=== PATIENT | female | born 1995 | race Caucasian/White ===

== ENCOUNTER 2016-09-25 20:30 | Inpatient (IN) ==
[2016-09-25 21:11] LABS: Basophils % 0.3 %; Eosinophils # 0.2 K/mcL (0.0-0.6); Eosinophils % 1.4 %; Hemoglobin 13.5 g/dL (11.5-15.4); Immature Granulocytes % 0.5 % (0-4); Lymphocytes # 2.6 K/mcL (0.6-4.6); Lymphocytes % 19.7 %; Mean Corpuscular HGB Conc 33.8 g/dL (31.6-35.5); Mean Corpuscular Hemoglobin 31.3 pg (28.0-33.3); Mean Corpuscular Volume 92.6 fL (83.0-100.0); Mean Platelet Volume 9.3 fL (9.4-12.4); Monocytes # 0.9 K/mcL (0.0-1.3); Monocytes % 6.4 %; Neutrophils # 9.5 K/mcL (1.6-8.9); Platelet Count 274 K/mcL (140-400); Red Blood Count 4.32 M/mcL (3.82-4.97); Segmented Neutrophils % 71.7 %
[2016-09-25 21:26] LABS: BUN/Creatinine Ratio 14 (6-26); Blood Urea Nitrogen 10 mg/dL (7-20); Calcium 9.4 mg/dL (8.6-10.8); Carbon Dioxide 25 mEq/L (19-29); Chloride 104 mEq/L (98-109); Glucose 94 mg/dL (70-99); Osmolality,Calculated 287 (280-300); Potassium 3.5 mEq/L (3.5-4.5); Sodium 139 mEq/L (136-145); eGFR For African Americans > 60 (> 60); eGFR For Non-African Americans > 60 (> 60)
[2016-09-25 21:27] LABS: Acetaminophen < 1.0 mcg/mL (10-30); Ethanol < 10 mg/dL (0-10); Salicylate < 5.0 mg/dL (15-30)
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
[2016-09-25 21:55] LABS: Bilirubin,Urine Negative (Negative); Blood,Urine Negative (Negative); Clarity,Urine Turbid (Clear); Color,Urine Yellow (Yellow); Glucose,Urine (UA) Normal (Normal); Ketones,Urine Negative (Negative); Leukocyte Esterase,Urine Trace (Negative); Nitrite,Urine Negative (Negative); Protein,Urine Negative (Neg-Trace); Specific Gravity,Urine 1.024 (1.010-1.025); Urobilinogen,Urine Normal (Normal)
[2016-09-25 21:56] LABS: Bacteria,Urine Moderate per hpf (None-Few); Hyaline Casts,Urine None Seen per lpf (None-Few); Squamous Epithelial Cell,Urine Many per lpf (None-Few)
[2016-09-25] MEDS ORDERED: Nicotine 14 MG PATCH.TD24 TD ONE (22:00)
[2016-09-25 22:01] LABS: Amphetamine Screen,Urine Negative ng/mL (Cutoff=1000); Barbiturate Screen,Urine Negative ng/mL (Cutoff=200); Benzodiazepines Screen,Urine Negative ng/mL (Cutoff=200); Cannabinoid Screen,Urine Negative ng/mL (Cutoff = 50); Cocaine Screen,Urine Negative ng/mL (Cutoff= 300); Opiate Screen,Urine Negative ng/mL (Cutoff=300); Phencyclidine Screen,Urine Negative ng/mL (Cutoff=25)
[2016-09-25 22:14] LABS: Amorphous Sediment,Urine Many (Few); Mucus,Urine Few (Few)
[2016-09-26] MEDS ORDERED: Acetaminophen 325 MG TABLET PO ONE (01:04)
[2016-09-26] MEDS ORDERED: *HR* LORazepam 2 MG/ML VIAL IM PRN (01:45)
[2016-09-26] MEDS ORDERED: hydrOXYzine pamoate 25 MG CAPSULE PO PRN (01:45)
[2016-09-26] MEDS ORDERED: Mag Hydrox/Al Hydrox/Simeth 30 ML UDC PO PRN (01:45)
[2016-09-26] MEDS ORDERED: *HR* LORazepam 1 MG TABLET PO PRN (01:45)
[2016-09-26] MEDS ORDERED: MOM Conc 10 ML UD.LIQ PO PRN (01:45)
[2016-09-26] MEDS ORDERED: Haloperidol Lactate 5 MG/ML VIAL IM PRN (01:45)
[2016-09-26] MEDS ORDERED: Acetaminophen 325 MG TABLET PO PRN (01:45)
[2016-09-26] MEDS ORDERED: Nicotine 14 MG PATCH.TD24 TD SCH (09:00)
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
[2016-09-26] MEDS: lamoTRIgine 25 MG TABLET PO SCH ×2 (11:09→21:16)
[2016-09-26] MEDS: Nicotine 2 MG GUM BC PRN (20:38)
[2016-09-27] MEDS: lamoTRIgine 25 MG TABLET PO SCH ×2 (08:53→21:10)
[2016-09-27] MEDS: Nicotine 2 MG GUM BC PRN ×3 (08:55→21:10)
--- NOTE | 2016-09-27 10:51 | Psychiatry Progress Note ---
Date of Encounter: 09/27/16 Time of Encounter: 10:49 Subjective Interval history: Patient seen and evaluated. Patient was a little upset that she would not be discharged today because she wanted to be home with her daughter. Patient was explained that we would have to see how her medication was doing before discharge. Patient was agreeable to this and understood why. Patient reports no side effects to new medication Lamictal being initiated for her mood stabilization. Patient has been met medication compliant. No when necessary's required for agitation or aggression. Patient has been going to groups and interacting with her peers. Results - Vital Signs Vital Signs: Temp Pulse Resp BP Pulse Ox 98.1 F 77 16 104/60 96 09/27/16 09:00 09/27/16 09:00 09/27/16 09:00 09/27/16 09:00 09/25/16 20:33 Assessment and Plan (1) Bipolar 2 disorder, major depressive episode Current visit: Yes Status: Acute Plan: Continue hospitalization, Close observation, Group Therapy, Monitor sleep , Monitor appetite, Family/Supportive other meeting Additional Plan: 09/27: continue meds, stronly encouraged individual counseling 09/26:- start lamictal 25 mg BID for mood sx control and depression - continue home dose of celexa Risks, benefits, side effects, alternatives discussed w/pt: Yes Patient agreeable to treatment: Yes (2) Intellectual disability Current visit: Yes Status: Acute Risks, benefits, side effects, alternatives discussed w/pt: Yes Patient agreeable to treatment: Yes Consult Discharge Plan - Plan Referrals: [facility] [Outside] - 10/20/16 10:00 am (The above appointment is with Ashley Costello for counseling. He will also see Dr. Pacheco on 10/31/2016 at 2:40 PM.)
[2016-09-28 08:35] VITALS: BP 96/71
[2016-09-28] MEDS: lamoTRIgine 25 MG TABLET PO SCH (08:44)
[2016-09-28] MEDS: Nicotine 2 MG GUM BC PRN ×2 (08:46→12:06)
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
[2016-09-28] MEDS ORDERED: FLU VACC QS2016-17 36MOS UP/PF 0.5 ML SYRINGE IM ONE (10:44)
== END 2016-09-28 12:55 | disposition home or self-care (01) | DRG 751 ==
LOC: EMEROO 20:30 → 1ANU 20:30 → SUATTDRO 09-26 01:28 → 1ANU 09-26 01:30
PROVIDERS: ADMIT Psychiatry & Neurology Psychiatry; ATTEND Psychiatry & Neurology Psychiatry

== ENCOUNTER 2017-04-12 12:12 | Inpatient (IN) ==
--- NOTE | 2017-04-12 12:34 | Emergency Department Note ---
START Narrative - START START: Patient presents from home for evaluation of feeling suicidal and homicidal per her mother. She states that she is very angry and depressed. She does not wish to discuss specific stressors at this time. She states that she has been evaluated by one a here in the past for similar feelings. She sees Dr. Pacheco, the psychiatrist at [facility]. She has had a recent medication change but is not sure which medication she was started on. She was taken off Abilify. She denies fever, chills, nausea, vomiting, chest pain, shortness of breath, dizziness, vertigo, syncope. Labs have been ordered to further evaluate the patient in hopes that she can be medically cleared for psychiatric evaluation. She will be admitted to a medical bed as soon as possible.
--- NOTE | 2017-04-12 12:44 | Emergency Department Note ---
Disposition Clinical Impression: Bipolar disorder Qualifiers: Active/Remission status: currently active Current bipolar episode type: mixed Current episode severity: unspecified Qualified Code(s): F31.60 - Bipolar disorder, current episode mixed, unspecified Disposition: Transfer Psychiatric Hosp Condition: Fair Referrals: NONE,PCP [Primary Care Provider] - Forms: ED Satisfaction Letter Time of Disposition: 17:01 Psych HPI - General Chief Complaint: ED Psychiatric Symptoms Stated Complaint: SI/HI Time Seen by Provider: 04/12/17 12:28 Source: patient, family Mode of arrival: ambulatory Limitations: no limitations Nursing Notes Reviewed: Yes Vital Signs Reviewed: Yes - History of Present Illness HPI Narrative: Patient states she has thoughts of hurting herself. She ingested extra amounts of her naproxen and Vistaril over the past several days in an attempt to harm herself. The mother notes she has been very agitated and easily irritable. Patient sleeping okay. She has history of bipolar 2. She denies drug or alcohol ingestion. Denies physical complaints Pt complaint: suicidal ideation Onset (ago): day(s) Duration: constant History of similar episodes: Yes Improves with: none Worsens with: none Context: new medication(s) Alleged intoxication: No Associated Psychiatric Symptoms: suicidal ideation, anxiety Traumatic symptoms: denies traumatic injury Treatments prior to arrival: none Self harm or harm to others: admits thoughts of self harm - Related Data Home Medications Medication Instructions Recorded Confirmed ARIPiprazole [Abilify] 10 mg PO DAILY 04/12/17 04/12/17 Citalopram Hydrobromide 40 mg PO DAILY 04/12/17 04/12/17 [Citalopram HBr] Paliperidone [Paliperidone ER] 1.5 mg PO DAILY 04/12/17 04/12/17 Pnv with Ca,No.72/Iron/FA [Pnv 1 tab PO DAILY 04/12/17 04/12/17 Plus Multivit Tab] Ziprasidone [Geodon] 20 mg PO BID 04/12/17 04/12/17 traZODone [TraZODone] 50 - 100 mg PO HS PRN 04/12/17 04/12/17 Previous Rx's Medication Instructions Recorded Naproxen [Naprosyn] 500 mg PO BID PRN #20 tablet 04/06/17 Allergies Allergy/AdvReac Type Severity Reaction Status Date / Time Amoxicillin Allergy Rash Verified 04/06/17 14:34 All systems ED: reviewed and negative except as stated. Constitutional: Reports: as per HPI Eyes: Reports: as per HPI ENT ED: Reports: as per HPI Cardiovascular: Reports: as per HPI Respiratory: Reports: as per HPI Gastrointestinal: Reports: as per HPI Genitourinary: Reports: as per HPI Musculoskeletal: Reports: as per HPI Integumentary: Reports: as per HPI Neurological: Reports: as per HPI Psychiatric: Reports: anxiety, suicidal thoughts Endocrine: Reports: as per HPI Hematological/Lymphatic: Reports: as per HPI Allergic/Immunologic: Reports: as per HPI Past Medical History - Past Medical History Source: patient Medical history: Reports: asthma, migraine Surgical history: Reports: no surgical history Psychiatric history: Reports: anxiety, bipolar, depression, prior suicide attempt 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 - Social History Smoking Status: Current every day smoker Smokeless Tobacco Status: No Alcohol use: Reports: none Drug use: Reports: none Physical Exam - General Limitations: no limitations General appearance: alert, in no apparent distress - Head Head exam: atraumatic - Eye Eye exam: Present: normal appearance - ENT ENT exam: normal exam - Neck Neck exam: Present: normal inspection, full ROM - Chest Chest inspection: Present: normal inspection, symmetric chest wall rise - Respiratory Respiratory exam: Present: normal lung sounds bilaterally - Cardiovascular Cardiovascular exam: Present: regular rate, normal rhythm, normal heart sounds - Rectal Exam Rectal exam: Present: deferred - Extremities Exam Extremities exam: Present: normal inspection - Neurological Exam Neurological exam: Present: alert, oriented X3, CN II-XII intact - Psychiatric Psychiatric exam: Present: normal affect, normal mood - Skin Skin exam: Present: warm, dry, intact Course Course Narrative: Patient presents to the emergency department complaining of suicidality. She appears in no acute distress on exam. She denies physical complaints. I will attempt to clear her medically for behavioral evaluation - Reevaluation(s) Reevaluation #1: Medically cleared. 1A called @ 13:12 Reevaluation #2: 1A to place to behavioral facility Vital Signs Temperature 97.8 F 04/12/17 12:18 Pulse Rate 89 04/12/17 12:18 Respiratory Rate 16 04/12/17 12:18 Blood Pressure 116/74 04/12/17 12:18 O2 Sat by Pulse Oximetry 98 04/12/17 12:18 Temperature 97.8 F 04/12/17 12:18 Pulse Rate 89 04/12/17 12:18 Respiratory Rate 16 04/12/17 12:18 Blood Pressure 116/74 04/12/17 12:18 O2 Sat by Pulse Oximetry 98 04/12/17 12:18 Oxygen Delivery Oxygen Delivery Room Air Psych - Lab Data Lab results reviewed: Yes I reviewed the patient's lab results. Result diagrams: 04/12/17 12:43 04/12/17 12:43 Lab Results 04/12/17 04/12/17 04/12/17 Range/Units 12:38 12:38 12:38 WBC (4.3-11.1) K/mcL RBC (3.82-4.97) M/mcL Hgb (11.5-15.4) g/dL Hct (35.3-44.9) % MCV (83.0-100.0) fL MCH (28.0-33.3) pg MCHC (31.6-35.5) g/dL RDW (11.5-14.5) % Plt Count (140-400) K/mcL MPV (9.4-12.4) fL Immature Gran % (0-4) % Seg Neutrophils % % Lymphocytes % % Monocytes % % Eosinophils % % Basophils % % Neutrophils # (1.6-8.9) K/mcL Lymphocytes # (0.6-4.6) K/mcL Monocytes # (0.0-1.3) K/mcL Eosinophils # (0.0-0.6) K/mcL Basophils # (0.0-0.2) K/mcL Immature Plt Fraction (1.1-6.1) % Sodium (136-145) mEq/L Potassium (3.5-4.5) mEq/L Chloride (98-109) mEq/L Carbon Dioxide (19-29) mEq/L BUN (7-20) mg/dL Creatinine (0.57-1.11) mg/dL Est GFR ( Amer) (> 60) Est GFR (Non-Af Amer) (> 60) BUN/Creatinine Ratio (6-26) Glucose (70-99) mg/dL Calculated Osmolality (280-300) Calcium (8.6-10.8) mg/dL TSH (0.350-4.840) mcIU/mL Urine Color Yellow (Yellow) Urine Clarity Cloudy A (Clear) Urine pH 6.5 (5.0-8.0) pH Units Ur Specific [place] 1.016 (1.010-1.025) Urine Protein Negative (Neg-Trace) mg/dL Urine Glucose (UA) Normal (Normal) mg/dL Urine Ketones Negative (Negative) mg/dL Urine Blood Negative (Negative) Urine Nitrite Negative (Negative) Urine Bilirubin Negative (Negative) Urine Urobilinogen Normal (Normal) mg/dL Ur Leukocyte Esterase Negative (Negative) Urine Microscopic RBC 0-3 (0-3) per hpf Urine Microscopic WBC 0-3 (0-3) per hpf Ur Squamous Epith Cells Many H (None-Few) per lpf Urine Bacteria Few (None-Few) per hpf Hyaline Casts None Seen (None-Few) per lpf Urine Test Negative (Negative) Salicylates (15-30) mg/dL Urine Opiates Screen Negative (Vuleeb=325) ng/mL Acetaminophen (10-30) mcg/mL Ur Barbiturates Screen Negative (Vhligi=116) ng/mL Ur Phencyclidine Scrn Negative (Cutoff=25) ng/mL Ur Amphetamines Screen Negative (Aozlfd=7040) ng/mL U Benzodiazepines Scrn Negative (Unzjfm=018) ng/mL Urine Cocaine Screen Negative (Cutoff= 300) ng/mL U Marijuana (THC) Screen Negative (Cutoff = 50) ng/mL Ethyl Alcohol (0-10) mg/dL 04/12/17 04/12/17 Range/Units 12:43 12:43 WBC 10.4 (4.3-11.1) K/mcL RBC 4.65 (3.82-4.97) M/mcL Hgb 14.0 (11.5-15.4) g/dL Hct 43.0 (35.3-44.9) % MCV 92.5 (83.0-100.0) fL MCH 30.1 (28.0-33.3) pg MCHC 32.6 (31.6-35.5) g/dL RDW 13.5 (11.5-14.5) % Plt Count 337 (140-400) K/mcL MPV 9.3 L (9.4-12.4) fL Immature Gran % 0.4 (0-4) % Seg Neutrophils % 65.7 % Lymphocytes % 25.2 % Monocytes % 6.2 % Eosinophils % 2.2 % Basophils % 0.3 % Neutrophils # 6.9 (1.6-8.9) K/mcL Lymphocytes # 2.6 (0.6-4.6) K/mcL Monocytes # 0.7 (0.0-1.3) K/mcL Eosinophils # 0.2 (0.0-0.6) K/mcL Basophils # 0.0 (0.0-0.2) K/mcL Immature Plt Fraction 2.1 (1.1-6.1) % Sodium 140 (136-145) mEq/L Potassium 4.2 (3.5-4.5) mEq/L Chloride 106 (98-109) mEq/L Carbon Dioxide 26 (19-29) mEq/L BUN 10 (7-20) mg/dL Creatinine 0.74 (0.57-1.11) mg/dL Est GFR ( Amer) > 60 (> 60) Est GFR (Non-Af Amer) > 60 (> 60) BUN/Creatinine Ratio 14 (6-26) Glucose 91 (70-99) mg/dL Calculated Osmolality 289 (280-300) Calcium 9.7 (8.6-10.8) mg/dL TSH 1.271 (0.350-4.840) mcIU/mL Urine Color (Yellow) Urine Clarity (Clear) Urine pH (5.0-8.0) pH Units Ur Specific [place] (1.010-1.025) Urine Protein (Neg-Trace) mg/dL Urine Glucose (UA) (Normal) mg/dL Urine Ketones (Negative) mg/dL Urine Blood (Negative) Urine Nitrite (Negative) Urine Bilirubin (Negative) Urine Urobilinogen (Normal) mg/dL Ur Leukocyte Esterase (Negative) Urine Microscopic RBC (0-3) per hpf Urine Microscopic WBC (0-3) per hpf Ur Squamous Epith Cells (None-Few) per lpf Urine Bacteria (None-Few) per hpf Hyaline Casts (None-Few) per lpf Urine Test (Negative) Salicylates < 5.0 L (15-30) mg/dL Urine Opiates Screen (Vucnaw=293) ng/mL Acetaminophen < 1.0 L (10-30) mcg/mL Ur Barbiturates Screen (Iaxthc=983) ng/mL Ur Phencyclidine Scrn (Cutoff=25) ng/mL Ur Amphetamines Screen (Rbphwb=7496) ng/mL U Benzodiazepines Scrn (Tnnctz=578) ng/mL Urine Cocaine Screen (Cutoff= 300) ng/mL U Marijuana (THC) Screen (Cutoff = 50) ng/mL Ethyl Alcohol < 10 (0-10) mg/dL Psychiatric Medical Clearance - Medical Clearance Checklist Medical History: No Social History Section defined Current Vitals: Last Vital Signs Temp 97.8 F 04/12/17 12:18 Pulse 89 04/12/17 12:18 Resp 16 04/12/17 12:18 BP 116/74 04/12/17 12:18 Pulse Ox 98 04/12/17 12:18 Psychiatric Lab Panel: Drug Levels and Toxicity 04/12/17 04/12/17 12:38 12:43 Urine Opiates Screen Negative Acetaminophen < 1.0 L Ur Barbiturates Screen Negative Ur Phencyclidine Scrn Negative Ur Amphetamines Screen Negative U Benzodiazepines Scrn Negative Urine Cocaine Screen Negative U Marijuana (THC) Screen Negative Ethyl Alcohol < 10 Abnormal Labs: Abnormal lab results MPV 9.3 fL (9.4-12.4) L 04/12/17 12:43 Urine Clarity Cloudy (Clear) A 04/12/17 12:38 Ur Squamous Epith Cells Many per lpf (None-Few) H 04/12/17 12:38 Salicylates < 5.0 mg/dL (15-30) L 04/12/17 12:43 Acetaminophen < 1.0 mcg/mL (10-30) L 04/12/17 12:43 Statement of Medical Clearance: I have evaluated the patient, reviewed diagnostic information, and certify that the patient's medical condition is sufficiently stable that transfer to the psychiatric unit does not pose a significant risk of deterioration.
[2017-04-12 12:50] LABS: Basophils % 0.3 %; Eosinophils # 0.2 K/mcL (0.0-0.6); Eosinophils % 2.2 %; Immature Granulocytes % 0.4 % (0-4); Immature Platelets 2.1 % (1.1-6.1); Lymphocytes # 2.6 K/mcL (0.6-4.6); Lymphocytes % 25.2 %; Mean Corpuscular HGB Conc 32.6 g/dL (31.6-35.5); Mean Corpuscular Hemoglobin 30.1 pg (28.0-33.3); Mean Corpuscular Volume 92.5 fL (83.0-100.0); Mean Platelet Volume 9.3 fL (9.4-12.4); Monocytes # 0.7 K/mcL (0.0-1.3); Monocytes % 6.2 %; Neutrophils # 6.9 K/mcL (1.6-8.9); Platelet Count 337 K/mcL (140-400); Red Blood Count 4.65 M/mcL (3.82-4.97); Red Cell Distribution Width 13.5 % (11.5-14.5); Segmented Neutrophils % 65.7 %
[2017-04-12 12:53] LABS: Bilirubin,Urine Negative (Negative); Blood,Urine Negative (Negative); Clarity,Urine Cloudy (Clear); Color,Urine Yellow (Yellow); Glucose,Urine (UA) Normal (Normal); Ketones,Urine Negative (Negative); Leukocyte Esterase,Urine Negative (Negative); Nitrite,Urine Negative (Negative); PH,Urine 6.5 pH Units (5.0-8.0); Protein,Urine Negative (Neg-Trace); Specific Gravity,Urine 1.016 (1.010-1.025); Urobilinogen,Urine Normal (Normal)
[2017-04-12 12:55] LABS: Amphetamine Screen,Urine Negative ng/mL (Cutoff=1000); Bacteria,Urine Few per hpf (None-Few); Barbiturate Screen,Urine Negative ng/mL (Cutoff=200); Benzodiazepines Screen,Urine Negative ng/mL (Cutoff=200); Cannabinoid Screen,Urine Negative ng/mL (Cutoff = 50); Cocaine Screen,Urine Negative ng/mL (Cutoff= 300); Hyaline Casts,Urine None Seen per lpf (None-Few); Opiate Screen,Urine Negative ng/mL (Cutoff=300); Phencyclidine Screen,Urine Negative ng/mL (Cutoff=25); RBC,Urine 0-3 per hpf (0-3); Squamous Epithelial Cell,Urine Many per lpf (None-Few); WBC,Urine 0-3 per hpf (0-3)
[2017-04-12 13:02] LABS: BUN/Creatinine Ratio 14 (6-26); Blood Urea Nitrogen 10 mg/dL (7-20); Calcium 9.7 mg/dL (8.6-10.8); Carbon Dioxide 26 mEq/L (19-29); Chloride 106 mEq/L (98-109); Glucose 91 mg/dL (70-99); Osmolality,Calculated 289 (280-300); Potassium 4.2 mEq/L (3.5-4.5); Sodium 140 mEq/L (136-145); eGFR For African Americans > 60 (> 60); eGFR For Non-African Americans > 60 (> 60)
[2017-04-12 13:03] LABS: Acetaminophen < 1.0 mcg/mL (10-30); Ethanol < 10 mg/dL (0-10); Salicylate < 5.0 mg/dL (15-30)
[2017-04-12 13:22] LABS: Thyroid Stimulating Hormone 1.271 mcIU/mL (0.350-4.840)
--- NOTE | 2017-04-13 00:34 | Emergency Department Note ---
Disposition Clinical Impression: Suicidal ideation Bipolar disorder Qualifiers: Active/Remission status: currently active Current bipolar episode type: mixed Current episode severity: unspecified Qualified Code(s): F31.60 - Bipolar disorder, current episode mixed, unspecified Disposition: Admitted As Inpatient Condition: Fair Referrals: NONE,PCP [Primary Care Provider] - Forms: ED Satisfaction Letter Time of Disposition: 00:34 Psych HPI - General Chief Complaint: ED Psychiatric Symptoms Stated Complaint: SI/HI Time Seen by Provider: 04/12/17 12:28 Source: patient, family Mode of arrival: ambulatory - History of Present Illness Duration: constant Improves with: none Worsens with: none Treatments prior to arrival: none - Related Data Home Medications Medication Instructions Recorded Confirmed ARIPiprazole [Abilify] 10 mg PO DAILY 04/12/17 04/12/17 Citalopram Hydrobromide 40 mg PO DAILY 04/12/17 04/12/17 [Citalopram HBr] Paliperidone [Paliperidone ER] 1.5 mg PO DAILY 04/12/17 04/12/17 Pnv with Ca,No.72/Iron/FA [Pnv 1 tab PO DAILY 04/12/17 04/12/17 Plus Multivit Tab] Ziprasidone [Geodon] 20 mg PO BID 04/12/17 04/12/17 traZODone [TraZODone] 50 - 100 mg PO HS PRN 04/12/17 04/12/17 Previous Rx's Medication Instructions Recorded Naproxen [Naprosyn] 500 mg PO BID PRN #20 tablet 04/06/17 Allergies Allergy/AdvReac Type Severity Reaction Status Date / Time Amoxicillin Allergy Rash Verified 04/06/17 14:34 Constitutional: Reports: as per HPI Eyes: Reports: as per HPI ENT ED: Reports: as per HPI Cardiovascular: Reports: as per HPI Respiratory: Reports: as per HPI Gastrointestinal: Reports: as per HPI Genitourinary: Reports: as per HPI Musculoskeletal: Reports: as per HPI Integumentary: Reports: as per HPI Neurological: Reports: as per HPI Psychiatric: Reports: anxiety, suicidal thoughts Endocrine: Reports: as per HPI Hematological/Lymphatic: Reports: as per HPI Allergic/Immunologic: Reports: as per HPI Past Medical History - Past Medical History Medical history: Reports: asthma, migraine Surgical history: Reports: no surgical history Psychiatric history: Reports: anxiety, bipolar, depression, prior suicide attempt 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 Arthur. Please refer to his note for complete details of history and physical examination. Patient presented here for her suicidal ideation. She has been medically cleared and has been evaluated by the psychiatry service. At shift change she is awaiting bed placement. 00:30 1A psych service called and advised that a bed became available here and patient will be admitted to [address]ry service. Vital Signs Temperature 97.8 F 04/12/17 12:18 Pulse Rate 89 04/12/17 12:18 Respiratory Rate 16 04/12/17 12:18 Blood Pressure 116/74 04/12/17 12:18 O2 Sat by Pulse Oximetry 98 04/12/17 12:18 Temperature 97.8 F 04/12/17 12:18 Pulse Rate 65 04/12/17 19:44 Respiratory Rate 18 04/12/17 19:44 Blood Pressure 112/76 04/12/17 19:44 O2 Sat by Pulse Oximetry 97 04/12/17 19:44 Oxygen Delivery Oxygen Delivery Room Air Psych - Lab Data Result diagrams: 04/12/17 12:43 04/12/17 12:43 Lab Results 04/12/17 04/12/17 04/12/17 Range/Units 12:38 12:38 12:38 WBC (4.3-11.1) K/mcL RBC (3.82-4.97) M/mcL Hgb (11.5-15.4) g/dL Hct (35.3-44.9) % MCV (83.0-100.0) fL MCH (28.0-33.3) pg MCHC (31.6-35.5) g/dL RDW (11.5-14.5) % Plt Count (140-400) K/mcL MPV (9.4-12.4) fL Immature Gran % (0-4) % Seg Neutrophils % % Lymphocytes % % Monocytes % % Eosinophils % % Basophils % % Neutrophils # (1.6-8.9) K/mcL Lymphocytes # (0.6-4.6) K/mcL Monocytes # (0.0-1.3) K/mcL Eosinophils # (0.0-0.6) K/mcL Basophils # (0.0-0.2) K/mcL Immature Plt Fraction (1.1-6.1) % Sodium (136-145) mEq/L Potassium (3.5-4.5) mEq/L Chloride (98-109) mEq/L Carbon Dioxide (19-29) mEq/L BUN (7-20) mg/dL Creatinine (0.57-1.11) mg/dL Est GFR ( Amer) (> 60) Est GFR (Non-Af Amer) (> 60) BUN/Creatinine Ratio (6-26) Glucose (70-99) mg/dL Calculated Osmolality (280-300) Calcium (8.6-10.8) mg/dL TSH (0.350-4.840) mcIU/mL Urine Color Yellow (Yellow) Urine Clarity Cloudy A (Clear) Urine pH 6.5 (5.0-8.0) pH Units Ur Specific [place] 1.016 (1.010-1.025) Urine Protein Negative (Neg-Trace) mg/dL Urine Glucose (UA) Normal (Normal) mg/dL Urine Ketones Negative (Negative) mg/dL Urine Blood Negative (Negative) Urine Nitrite Negative (Negative) Urine Bilirubin Negative (Negative) Urine Urobilinogen Normal (Normal) mg/dL Ur Leukocyte Esterase Negative (Negative) Urine Microscopic RBC 0-3 (0-3) per hpf Urine Microscopic WBC 0-3 (0-3) per hpf Ur Squamous Epith Cells Many H (None-Few) per lpf Urine Bacteria Few (None-Few) per hpf Hyaline Casts None Seen (None-Few) per lpf Urine Test Negative (Negative) Salicylates (15-30) mg/dL Urine Opiates Screen Negative (Ipdpkd=105) ng/mL Acetaminophen (10-30) mcg/mL Ur Barbiturates Screen Negative (Zsswjr=297) ng/mL Ur Phencyclidine Scrn Negative (Cutoff=25) ng/mL Ur Amphetamines Screen Negative (Lgyfnz=6128) ng/mL U Benzodiazepines Scrn Negative (Jlepxf=372) ng/mL Urine Cocaine Screen Negative (Cutoff= 300) ng/mL U Marijuana (THC) Screen Negative (Cutoff = 50) ng/mL Ethyl Alcohol (0-10) mg/dL 04/12/17 04/12/17 Range/Units 12:43 12:43 WBC 10.4 (4.3-11.1) K/mcL RBC 4.65 (3.82-4.97) M/mcL Hgb 14.0 (11.5-15.4) g/dL Hct 43.0 (35.3-44.9) % MCV 92.5 (83.0-100.0) fL MCH 30.1 (28.0-33.3) pg MCHC 32.6 (31.6-35.5) g/dL RDW 13.5 (11.5-14.5) % Plt Count 337 (140-400) K/mcL MPV 9.3 L (9.4-12.4) fL Immature Gran % 0.4 (0-4) % Seg Neutrophils % 65.7 % Lymphocytes % 25.2 % Monocytes % 6.2 % Eosinophils % 2.2 % Basophils % 0.3 % Neutrophils # 6.9 (1.6-8.9) K/mcL Lymphocytes # 2.6 (0.6-4.6) K/mcL Monocytes # 0.7 (0.0-1.3) K/mcL Eosinophils # 0.2 (0.0-0.6) K/mcL Basophils # 0.0 (0.0-0.2) K/mcL Immature Plt Fraction 2.1 (1.1-6.1) % Sodium 140 (136-145) mEq/L Potassium 4.2 (3.5-4.5) mEq/L Chloride 106 (98-109) mEq/L Carbon Dioxide 26 (19-29) mEq/L BUN 10 (7-20) mg/dL Creatinine 0.74 (0.57-1.11) mg/dL Est GFR ( Amer) > 60 (> 60) Est GFR (Non-Af Amer) > 60 (> 60) BUN/Creatinine Ratio 14 (6-26) Glucose 91 (70-99) mg/dL Calculated Osmolality 289 (280-300) Calcium 9.7 (8.6-10.8) mg/dL TSH 1.271 (0.350-4.840) mcIU/mL Urine Color (Yellow) Urine Clarity (Clear) Urine pH (5.0-8.0) pH Units Ur Specific [place] (1.010-1.025) Urine Protein (Neg-Trace) mg/dL Urine Glucose (UA) (Normal) mg/dL Urine Ketones (Negative) mg/dL Urine Blood (Negative) Urine Nitrite (Negative) Urine Bilirubin (Negative) Urine Urobilinogen (Normal) mg/dL Ur Leukocyte Esterase (Negative) Urine Microscopic RBC (0-3) per hpf Urine Microscopic WBC (0-3) per hpf Ur Squamous Epith Cells (None-Few) per lpf Urine Bacteria (None-Few) per hpf Hyaline Casts (None-Few) per lpf Urine Test (Negative) Salicylates < 5.0 L (15-30) mg/dL Urine Opiates Screen (Ghbvov=558) ng/mL Acetaminophen < 1.0 L (10-30) mcg/mL Ur Barbiturates Screen (Tzqcat=211) ng/mL Ur Phencyclidine Scrn (Cutoff=25) ng/mL Ur Amphetamines Screen (Ercnvn=3607) ng/mL U Benzodiazepines Scrn (Wqjpno=781) ng/mL Urine Cocaine Screen (Cutoff= 300) ng/mL U Marijuana (THC) Screen (Cutoff = 50) ng/mL Ethyl Alcohol < 10 (0-10) mg/dL Psychiatric Medical Clearance - Medical Clearance Checklist Medical History: No Social History Section defined Current Vitals: Last Vital Signs Temp 97.8 F 04/12/17 12:18 Pulse 65 04/12/17 19:44 Resp 18 04/12/17 19:44 BP 112/76 04/12/17 19:44 Pulse Ox 97 04/12/17 19:44 Psychiatric Lab Panel: Drug Levels and Toxicity 04/12/17 04/12/17 12:38 12:43 Urine Opiates Screen Negative Acetaminophen < 1.0 L Ur Barbiturates Screen Negative Ur Phencyclidine Scrn Negative Ur Amphetamines Screen Negative U Benzodiazepines Scrn Negative Urine Cocaine Screen Negative U Marijuana (THC) Screen Negative Ethyl Alcohol < 10 Abnormal Labs: Abnormal lab results MPV 9.3 fL (9.4-12.4) L 04/12/17 12:43 Urine Clarity Cloudy (Clear) A 04/12/17 12:38 Ur Squamous Epith Cells Many per lpf (None-Few) H 04/12/17 12:38 Salicylates < 5.0 mg/dL (15-30) L 04/12/17 12:43 Acetaminophen < 1.0 mcg/mL (10-30) L 04/12/17 12:43 Statement of Medical Clearance: I have evaluated the patient, reviewed diagnostic information, and certify that the patient's medical condition is sufficiently stable that transfer to the psychiatric unit does not pose a significant risk of deterioration.
[2017-04-13] MEDS ORDERED: MOM Conc 10 ML UD.LIQ PO PRN (00:47)
[2017-04-13] MEDS ORDERED: Mag Hydrox/Al Hydrox/Simeth 30 ML UDC PO PRN (00:47)
[2017-04-13] MEDS ORDERED: traZODone 50 MG TABLET PO PRN (00:47)
[2017-04-13] MEDS: traZODone 50 MG TABLET PO PRN ×2 (02:06→21:04)
[2017-04-13] MEDS: Prenatal Vit/FA 1 EACH TABLET PO SCH (08:25)
[2017-04-13] MEDS: PALIPERIDONE PO SCH (08:49)
[2017-04-13] MEDS ORDERED: PALIPERIDONE PO SCH (09:00)
--- NOTE | 2017-04-13 14:00 | Psychiatry History & Physical ---
Date of Encounter: 04/13/17 Time of Encounter: 13:57 History of Present Illness Patient Stated Chief Complaint: "i was suicidal" Medicare Admission Attestation: For traditional Medicare patients the provided hospital inpatient services are reasonable and necessary and in the case of services not specified as inpatient -only under 42 CFR 419.22 (n), that they are appropriately provided as inpatient services in accordance 42 CFR 412.3. For Critical Access Hospital the patient may reasonably be expected to be discharged or transferred to a hospital within 96 hours after admission to the Critical Access Hospital. Admitted From: Home Plans for Post Hospital Care: Home History of Present Illness: Ms. Portillo is a 21 year old female with past psychiatric history of bipolar disorder admitted to inpatient psychiatry for safety and stabilization. Patient presents from home for evaluation of feeling suicidal and homicidal. On evaluation with patient this morning she was a very poor historian she was laying in bed would not fully cooperate with evaluation. Patient reports that at this time she is not homicidal anymore. Reports ongoing suicidal ideations with no current plan. Patient reports that she did overdose recently on her medications. Patient reports that she is here because she is "not doing well" she feels her medication is not working she reports until yesterday she was taking all of her medication. She states that she is very angry and depressed. She does not wish to discuss specific stressors at this time. She has had a recent medication change but is not sure which medication she was started on. She was taken off Abilify. Endorsed depressive sx's Endorsed anxiety sx's Denied AVH no paranoia or psychosis Past Med Surg Social Fam HX - Past Medical History Medical history: asthma, migraine - Past Psychiatric History Psychiatric history: Reports: bipolar, prior suicide attempt, previous psychiatric hospitalization Past psychiatric history details: Inpatient hospilizations- 2x at [facility] last December 2016 SA: 2 x in past overdose Past psych meds" its a long list" Current psych meds- "i dont remember Social hx: lives at home has a daughter - Past Surgical History Surgical History: no surgical history - Social History Smoking Status: Current every day smoker Smokeless Tobacco Status: No Alcohol use: none Drug use: none - Family History Mother Hx Family Respiratory Disorders: Yes (asthma) Medications & Allergies Naproxen [Naprosyn] 500 mg PO BID PRN #20 tablet 04/06/17 [Rx] Citalopram Hydrobromide [Citalopram HBr] 40 mg PO DAILY 04/12/17 [History] Paliperidone [Paliperidone ER] 1.5 mg PO DAILY 04/12/17 [History] Pnv with Ca,No.72/Iron/FA [Pnv Plus Multivit Tab] 1 tab PO DAILY [History] traZODone [TraZODone] 50 - 100 mg PO HS PRN 04/12/17 [History] 3 Allergy/AdvReac Type Severity Reaction Status Date / Time Amoxicillin Allergy Rash Verified 04/06/17 14:34 Review of Systems Psychiatric: Reports: depression, suicidal ideation, difficulty concentrating, mood swings Mental Status Exam Patient orientation: Yes Person, Yes Time, Yes Place Level of alertness: Other Patient appearance: Unkempt Behavior: anxious Psychomotor activity: Slowed Eye contact: Minimal Contact Mood description: Depressed, Anxious, Labile Affect description: flat Speech pattern: Normal rate, Normal rhythm, Normal tone Speech volume: Soft/Quiet Thought process: Slowed Thinking Thought content: Yes Suicidal ideation Attention span: Unable to Focus, Unable to Sustain Attention Memory description: Recent Impaired Patient reliability: Questionable Historian Intelligence estimate: Below Average Judgment: Poor Insight: Minimal Exam - HEENT Head exam IM: Present: normal inspection Eye exam IM: Present: EOMI - Neurological Neurological exam IM: Present: oriented X3 Results - Vital Signs Vital signs: Temp Pulse Resp BP Pulse Ox 97.6 F 83 16 109/60 97 04/13/17 09:00 04/13/17 09:00 04/13/17 09:00 04/13/17 09:00 04/12/17 19:44 - Labs Labs: Laboratory Last Values WBC 10.4 K/mcL (4.3-11.1) 04/12/17 12:43 RBC 4.65 M/mcL (3.82-4.97) 04/12/17 12:43 Hgb 14.0 g/dL (11.5-15.4) 04/12/17 12:43 Hct 43.0 % (35.3-44.9) 04/12/17 12:43 MCV 92.5 fL (83.0-100.0) 04/12/17 12:43 MCH 30.1 pg (28.0-33.3) 04/12/17 12:43 MCHC 32.6 g/dL (31.6-35.5) 04/12/17 12:43 RDW 13.5 % (11.5-14.5) 04/12/17 12:43 Plt Count 337 K/mcL (140-400) 04/12/17 12:43 MPV 9.3 fL (9.4-12.4) L 04/12/17 12:43 Immature Gran % 0.4 % (0-4) 04/12/17 12:43 Seg Neutrophils % 65.7 % 04/12/17 12:43 Lymphocytes % 25.2 % 04/12/17 12:43 Monocytes % 6.2 % 04/12/17 12:43 Eosinophils % 2.2 % 04/12/17 12:43 Basophils % 0.3 % 04/12/17 12:43 Neutrophils # 6.9 K/mcL (1.6-8.9) 04/12/17 12:43 Lymphocytes # 2.6 K/mcL (0.6-4.6) 04/12/17 12:43 Monocytes # 0.7 K/mcL (0.0-1.3) 04/12/17 12:43 Eosinophils # 0.2 K/mcL (0.0-0.6) 04/12/17 12:43 Basophils # 0.0 K/mcL (0.0-0.2) 04/12/17 12:43 Immature Plt Fraction 2.1 % (1.1-6.1) 04/12/17 12:43 Sodium 140 mEq/L (136-145) 04/12/17 12:43 Potassium 4.2 mEq/L (3.5-4.5) 04/12/17 12:43 Chloride 106 mEq/L (98-109) 04/12/17 12:43 Carbon Dioxide 26 mEq/L (19-29) 04/12/17 12:43 BUN 10 mg/dL (7-20) 04/12/17 12:43 Creatinine 0.74 mg/dL (0.57-1.11) 04/12/17 12:43 Est GFR ( Amer) > 60 (> 60) 04/12/17 12:43 Est GFR (Non-Af Amer) > 60 (> 60) 04/12/17 12:43 BUN/Creatinine Ratio 14 (6-26) 04/12/17 12:43 Glucose 91 mg/dL (70-99) 04/12/17 12:43 Calculated Osmolality 289 (280-300) 04/12/17 12:43 Calcium 9.7 mg/dL (8.6-10.8) 04/12/17 12:43 TSH 1.271 mcIU/mL (0.350-4.840) 04/12/17 12:43 Urine Color Yellow (Yellow) 04/12/17 12:38 Urine Clarity Cloudy (Clear) A 04/12/17 12:38 Urine pH 6.5 pH Units (5.0-8.0) 04/12/17 12:38 Ur Specific [place] 1.016 (1.010-1.025) 04/12/17 12:38 Urine Protein Negative mg/dL (Neg-Trace) 04/12/17 12:38 Urine Glucose (UA) Normal mg/dL (Normal) 04/12/17 12:38 Urine Ketones Negative mg/dL (Negative) 04/12/17 12:38 Urine Blood Negative (Negative) 04/12/17 12:38 Urine Nitrite Negative (Negative) 04/12/17 12:38 Urine Bilirubin Negative (Negative) 04/12/17 12:38 Urine Urobilinogen Normal mg/dL (Normal) 04/12/17 12:38 Ur Leukocyte Esterase Negative (Negative) 04/12/17 12:38 Urine Microscopic RBC 0-3 per hpf (0-3) 04/12/17 12:38 Urine Microscopic WBC 0-3 per hpf (0-3) 04/12/17 12:38 Ur Squamous Epith Cells Many per lpf (None-Few) H 04/12/17 12:38 Urine Bacteria Few per hpf (None-Few) 04/12/17 12:38 Hyaline Casts None Seen per lpf (None-Few) 04/12/17 12:38 Urine Test Negative (Negative) 04/12/17 12:38 Salicylates < 5.0 mg/dL (15-30) L 04/12/17 12:43 Urine Opiates Screen Negative ng/mL (Ywxbtz=352) 04/12/17 12:38 Acetaminophen < 1.0 mcg/mL (10-30) L 04/12/17 12:43 Ur Barbiturates Screen Negative ng/mL (Kzykog=917) 04/12/17 12:38 Ur Phencyclidine Scrn Negative ng/mL (Cutoff=25) 04/12/17 12:38 Ur Amphetamines Screen Negative ng/mL (Ecepvj=9649) 04/12/17 12:38 U Benzodiazepines Scrn Negative ng/mL (Hsxann=541) 04/12/17 12:38 Urine Cocaine Screen Negative ng/mL (Cutoff= 300) 04/12/17 12:38 U Marijuana (THC) Screen Negative ng/mL (Cutoff = 50) 04/12/17 12:38 Ethyl Alcohol < 10 mg/dL (0-10) 04/12/17 12:43 Assessment and Plan (1) Bipolar 2 disorder, major depressive episode Current visit: No Status: Acute Plan: Admit inpatient for safety and stabilization, Suicide Precautions per unit protocol, Encourage participation in unit milieu, Group Therapy, Monitor sleep, Monitor appetite, Family/Supportive other meeting Additional Plan: - start lamictal 25 mg qhs for mood sx's pt was on this in the past and did well. Risks, benefits, side effects, alternatives discussed w/pt: Yes Patient agreeable to treatment: Yes Plans for Post Hospital Care: Home Estimated Length of Stay (Days): 5
[2017-04-13] MEDS: Nicotine 2 MG GUM BC PRN (17:44)
[2017-04-13] MEDS: lamoTRIgine 25 MG TABLET PO SCH (21:04)
--- NOTE | 2017-04-14 09:04 | Psychiatry Progress Note ---
Date of Encounter: 04/14/17 Time of Encounter: 09:02 Subjective Interval history: Patient seen and evaluated this morning patient was seen eating breakfast and drinking to this provider to talk about how she was doing. Patient was much more alert today. Patient reports that she feels 1% better just because she was able to get up and go to breakfast. Patient reports that she "do not want to be here" patient reports by that she means she does not want to be here on earth. Patient reports that she still having suicidal ideations. Patient reports she is a 2-year-old son and that is the reason she did not act on these suicidal ideations. Patient reports that it seems as though when she started on a medication at works for a while but then it stops working. Patient did report that she saw a counselor only one time and thereafter she stopped and did not follow-up with the counselor. Which she reports she would like to possibly continue services with counseling post discharge. Discussed medication options with patient patient reports that she has tried Zoloft and Prozac and Celexa which she reports feeling like the Celexa now is not helping patient reports she has not tried any medications from the as [place] and discussed starting Effexor and patient was agreeable to this this provider saw patient on last hospitalization the patient did well on Lamictal patient reports she was not sure why she stopped taking it a was agreeable to start taking Lamictal again to see if this would help with her depression. Patient slept well appetite fair and has been med compliant and has not received any when necessary medication for agitation or aggression Review of Systems Psychiatric: Reports: depression, suicidal ideation, difficulty concentrating, mood swings Objective: Exam Patient orientation: Yes Person, Yes Time, Yes Place Level of alertness: Alert Patient appearance: Appropriate Behavior: anxious Psychomotor activity: Slowed Eye contact: Maintains Eye Contact Mood description: Depressed, Anxious, Labile Affect description: flat Speech pattern: Normal rate, Normal rhythm, Normal tone Speech volume: Normal Thought process: Intact Thought content: Yes Suicidal ideation Judgment: Limited Insight: Minimal Results - Vital Signs Vital Signs: Temp Pulse Resp BP Pulse Ox 97.4 F L 75 14 110/59 97 04/14/17 08:29 04/14/17 08:29 04/14/17 08:29 04/14/17 08:29 04/12/17 19:44 Assessment and Plan (1) Bipolar 2 disorder, major depressive episode Current visit: No Status: Acute Plan: Continue hospitalization, Encourage participation in unit milieu, Group Therapy, Monitor sleep, Monitor appetite Additional Plan: 04/14- dc celexa due to beingineffective start effexor 37.5 mg XR would consider increasing on friday 04/13- start lamictal 25 mg qhs for mood sx's pt was on this in the past and did well. Risks, benefits, side effects, alternatives discussed w/pt: Yes Patient agreeable to treatment: Yes Consult Discharge Plan - Plan Referrals: NONE,PCP [Primary Care Provider] -
[2017-04-14] MEDS: lamoTRIgine 25 MG TABLET PO SCH ×3 (09:10→20:34)
[2017-04-14] MEDS: Prenatal Vit/FA 1 EACH TABLET PO SCH (09:10)
[2017-04-14] MEDS: Venlafaxine XR (24 HR) 37.5 MG CAP.ER.24H PO SCH (09:10)
[2017-04-14] MEDS: PALIPERIDONE PO SCH (09:12)
[2017-04-14] MEDS: Nicotine 2 MG GUM BC PRN (17:13)
[2017-04-15] MEDS: Prenatal Vit/FA 1 EACH TABLET PO SCH (09:01)
[2017-04-15] MEDS: Venlafaxine XR (24 HR) 37.5 MG CAP.ER.24H PO SCH (09:02)
[2017-04-15] MEDS: lamoTRIgine 25 MG TABLET PO SCH ×3 (09:02→20:57)
[2017-04-15] MEDS: PALIPERIDONE PO SCH (09:02)
[2017-04-15] MEDS: Nicotine 2 MG GUM BC PRN ×2 (09:04→20:58)
--- NOTE | 2017-04-15 13:01 | Psychiatry Progress Note ---
Date of Encounter: 04/15/17 Time of Encounter: 12:23 Subjective Interval history: Patient seen and interviewed. History and physical examination reviewed. Patient is reporting of not doing well. She is isolative and withdrawn. She is very quiet and detached. Minimal interaction with peers and minimal participation in groups. Endorsing hopeless helpless feelings and suicidal ideations. Tolerating medications fairly well. Review of Systems Psychiatric: Reports: depression, suicidal ideation, difficulty concentrating, mood swings Objective: Exam Patient orientation: Yes Person, Yes Time, Yes Place Level of alertness: Sedated Patient appearance: Unkempt, Disheveled, Obese Behavior: anxious, tearful Psychomotor activity: Normal Eye contact: Maintains Eye Contact Mood description: Depressed, Anxious Affect description: congruent with mood, tearful, dysphoric Speech pattern: Slowed, Delayed Speech volume: Soft/Quiet Thought process: Linear, Goal Oriented Thought content: Yes Suicidal ideation Perceptual disturbances: No Auditory hallucinations, No Visual hallucinations Judgment: Limited Insight: Minimal Results - Vital Signs Vital Signs: Temp Pulse Resp BP Pulse Ox 97.5 F L 78 14 111/64 97 04/15/17 09:00 04/15/17 09:00 04/15/17 09:00 04/15/17 09:00 04/12/17 19:44 Assessment and Plan (1) Bipolar 2 disorder, major depressive episode Current visit: No Status: Acute Plan: Continue hospitalization, Close observation, Suicide Precautions per unit protocol, Encourage participation in unit milieu, Group Therapy, Monitor sleep, Monitor appetite Additional Plan: Will increase Effexor to 75 mg daily Risks, benefits, side effects, alternatives discussed w/pt: Yes Patient agreeable to treatment: Yes Consult Discharge Plan - Plan Referrals: [facility] [Outside] - 06/22/17 8:40 am (The above appointment is with Dr. Traore for outpatient psychiatric assessment and medication management services. Please arrive 10 minutes early to all appointments to complete the check-in process. Please bring your insurance card and photo ID. If you are unable to keep this appointment, 24 hour business notice of cancellation is expected. The above appointment(s) reflects first availability. You may contact the office regularly to check for cancellations that may allow you to be seen sooner. ) [facility] [Outside] - 04/24/17 4:00 pm (The above appointment is with Burt Pelayo for outpatient mental health counseling services. If you are unable to attend this appointment, please contact Burt at .)
[2017-04-15] MEDS: traZODone 50 MG TABLET PO PRN (20:57)
[2017-04-16] MEDS: Prenatal Vit/FA 1 EACH TABLET PO SCH (08:11)
[2017-04-16] MEDS: Venlafaxine XR (24 HR) 37.5 MG CAP.ER.24H PO SCH (08:12)
[2017-04-16] MEDS: lamoTRIgine 25 MG TABLET PO SCH ×3 (08:13→21:16)
[2017-04-16] MEDS: PALIPERIDONE PO SCH (08:17)
[2017-04-16] MEDS: Nicotine 2 MG GUM BC PRN ×3 (08:31→18:03)
--- NOTE | 2017-04-16 13:04 | Psychiatry Progress Note ---
Date of Encounter: 04/16/17 Time of Encounter: 12:25 Subjective Interval history: Patient seen and interviewed. Slight improvement from yesterday. Suicidal ideations of started to subside. Patient appears a little bit more positive and becoming more future oriented. Unable to verbalize a safety plan. Patient is encouraged to start working on a safety plan. Tolerating medications fairly well. Review of Systems Psychiatric: Reports: depression, difficulty concentrating, mood swings Objective: Exam Patient orientation: Yes Person, Yes Time, Yes Place Level of alertness: Alert Patient appearance: Unkempt, Disheveled Behavior: calm, cooperative Psychomotor activity: Slowed Eye contact: Maintains Eye Contact Mood description: Depressed Affect description: flat, dysphoric Speech pattern: Normal rate, Normal rhythm, Normal tone Speech volume: Normal Thought process: Linear, Goal Oriented Thought content: No Suicidal ideation, No Homicidal ideation, No Overt delusions Perceptual disturbances: No Auditory hallucinations, No Visual hallucinations Judgment: Fair Insight: Partial Results - Vital Signs Vital Signs: Temp Pulse Resp BP Pulse Ox 97.6 F 67 18 102/64 97 04/16/17 09:00 04/16/17 09:00 04/16/17 09:00 04/16/17 09:00 04/12/17 19:44 Assessment and Plan (1) Bipolar 2 disorder, major depressive episode Current visit: No Status: Acute Plan: Continue hospitalization, Close observation, Suicide Precautions per unit protocol, Encourage participation in unit milieu, Group Therapy, Monitor sleep, Monitor appetite Additional Plan: Continue with current regime of medication Risks, benefits, side effects, alternatives discussed w/pt: Yes Patient agreeable to treatment: Yes Consult Discharge Plan - Plan Referrals: [facility] [Outside] - 06/22/17 8:40 am (The above appointment is with Dr. Traore for outpatient psychiatric assessment and medication management services. Please arrive 10 minutes early to all appointments to complete the check-in process. Please bring your insurance card and photo ID. If you are unable to keep this appointment, 24 hour business notice of cancellation is expected. The above appointment(s) reflects first availability. You may contact the office regularly to check for cancellations that may allow you to be seen sooner. ) [facility] [Outside] - 04/24/17 4:00 pm (The above appointment is with Burt Pelayo for outpatient mental health counseling services. If you are unable to attend this appointment, please contact Burt at .)
[2017-04-16] MEDS: traZODone 50 MG TABLET PO PRN (21:16)
[2017-04-17] MEDS: Venlafaxine XR (24 HR) 37.5 MG CAP.ER.24H PO SCH (08:58)
[2017-04-17] MEDS: lamoTRIgine 25 MG TABLET PO SCH ×2 (08:59→15:20)
[2017-04-17] MEDS: PALIPERIDONE PO SCH (08:59)
[2017-04-17] MEDS: Prenatal Vit/FA 1 EACH TABLET PO SCH (08:59)
[2017-04-17] MEDS: Nicotine 2 MG GUM BC PRN ×3 (09:05→21:09)
[2017-04-17] MEDS: hydrOXYzine pamoate 25 MG CAPSULE PO PRN (10:23)
--- NOTE | 2017-04-17 13:13 | Psychiatry Progress Note ---
Date of Encounter: 04/17/17 Time of Encounter: 13:12 Subjective Interval history: Patient seen and evaluated this morning patient was an TV room watching TV in no acute distress. Patient reports her mood as "okay" she reports she is been not having a good couple days. She reports ongoing suicidal thoughts but no plan or attempt. Vague when describing suicidal thoughts. Patient reports that other than that her mood has been "fine". Patient reports she has been sleeping okay and her appetite has been "fine". Patient reports no current issues with her medication she has been medication compliant and denies any side effects with her medication. Review of Systems Psychiatric: Reports: depression, difficulty concentrating, mood swings Objective: Exam Patient orientation: Yes Person, Yes Time, Yes Place, Yes Circumstance Level of alertness: Alert Patient appearance: Appropriate Behavior: anxious Psychomotor activity: Normal Eye contact: Maintains Eye Contact Mood description: Depressed, Anxious Affect description: flat Speech pattern: Normal rate, Normal rhythm Speech volume: Normal Thought process: Intact Thought content: Yes Suicidal ideation Judgment: Limited Insight: Partial Results - Vital Signs Vital Signs: Temp Pulse Resp BP Pulse Ox 98.4 F 80 16 103/61 97 04/17/17 09:00 04/17/17 09:00 04/17/17 09:00 04/17/17 09:00 04/12/17 19:44 Assessment and Plan (1) Bipolar 2 disorder, major depressive episode Current visit: No Status: Acute Additional Plan: Continue with current regime of medication Risks, benefits, side effects, alternatives discussed w/pt: Yes Patient agreeable to treatment: Yes Consult Discharge Plan - Plan Referrals: [facility] [Outside] - 06/22/17 8:40 am (The above appointment is with Dr. Traore for outpatient psychiatric assessment and medication management services. Please arrive 10 minutes early to all appointments to complete the check-in process. Please bring your insurance card and photo ID. If you are unable to keep this appointment, 24 hour business notice of cancellation is expected. The above appointment(s) reflects first availability. You may contact the office regularly to check for cancellations that may allow you to be seen sooner. ) [facility] [Outside] - 04/24/17 4:00 pm (The above appointment is with Burt Pelayo for outpatient mental health counseling services. If you are unable to attend this appointment, please contact Burt at .)
[2017-04-17] MEDS: lamoTRIgine 100 MG TABLET PO SCH (20:26)
[2017-04-17] MEDS: traZODone 50 MG TABLET PO PRN (21:18)
[2017-04-18] MEDS: lamoTRIgine 25 MG TABLET PO SCH ×2 (08:28→16:00)
[2017-04-18] MEDS: Venlafaxine XR (24 HR) 37.5 MG CAP.ER.24H PO SCH (08:28)
[2017-04-18] MEDS: Prenatal Vit/FA 1 EACH TABLET PO SCH (08:29)
[2017-04-18] MEDS: Venlafaxine XR (24 HR) 150 MG CAP.ER.24H PO SCH (08:29)
[2017-04-18] MEDS: lamoTRIgine 100 MG TABLET PO SCH ×2 (08:29→20:43)
[2017-04-18] MEDS: PALIPERIDONE PO SCH (08:30)
[2017-04-18] MEDS: Acetaminophen 325 MG TABLET PO PRN ×2 (09:52→16:00)
[2017-04-18] MEDS: Nicotine 2 MG GUM BC PRN ×3 (12:38→20:45)
--- NOTE | 2017-04-18 15:08 | Psychiatry Progress Note ---
Date of Encounter: 04/18/17 Time of Encounter: 15:07 Subjective Interval history: Patient seen and evaluated this morning patient reports that today she is feeling "much better". Patient reports she is not having any suicidal ideations today. When asked patient what might have changed since yesterday patient reports "I think the medication is working". Patient has been medication compliant patient did have a visit from her family as well as her son yesterday went well well. Patient reports that she is in no acute distress. Patient did report that she is having some difficulty sleeping and staying sleep but then also reports this secondary to her menstrual cycle last night. Staff has not reported any agitation or aggression. Review of Systems Psychiatric: Reports: depression, anxiety, abnormal sleep pattern Objective: Exam Patient orientation: Yes Person, Yes Time, Yes Place Level of alertness: Alert Patient appearance: Appropriate Behavior: calm Psychomotor activity: Normal Eye contact: Maintains Eye Contact Mood description: Euthymic/stable Affect description: congruent with mood Speech pattern: Normal rate, Normal rhythm Speech volume: Normal Thought process: Intact Thought content: Yes Intact Judgment: Fair Insight: Partial Results - Vital Signs Vital Signs: Temp Pulse Resp BP Pulse Ox 97.4 F L 71 14 98/61 97 04/18/17 09:00 04/18/17 09:00 04/18/17 09:00 04/18/17 09:00 04/12/17 19:44 Assessment and Plan (1) Bipolar 2 disorder, major depressive episode Current visit: No Status: Acute Plan: Continue hospitalization, Group Therapy, Monitor sleep, Monitor appetite Risks, benefits, side effects, alternatives discussed w/pt: Yes Patient agreeable to treatment: Yes Consult Discharge Plan - Plan Referrals: [facility] [Outside] - 06/22/17 8:40 am (The above appointment is with Dr. Traore for outpatient psychiatric assessment and medication management services. Please arrive 10 minutes early to all appointments to complete the check-in process. Please bring your insurance card and photo ID. If you are unable to keep this appointment, 24 hour business notice of cancellation is expected. The above appointment(s) reflects first availability. You may contact the office regularly to check for cancellations that may allow you to be seen sooner. ) [facility] [Outside] - 04/24/17 4:00 pm (The above appointment is with Nadyne Pierce for outpatient mental health counseling services. If you are unable to attend this appointment, please contact Burt at .)
[2017-04-18] MEDS: traZODone 50 MG TABLET PO PRN (23:30)
[2017-04-19] MEDS: lamoTRIgine 25 MG TABLET PO SCH ×2 (09:00→15:48)
[2017-04-19] MEDS: Prenatal Vit/FA 1 EACH TABLET PO SCH (09:00)
[2017-04-19] MEDS: Venlafaxine XR (24 HR) 150 MG CAP.ER.24H PO SCH (09:01)
[2017-04-19] MEDS: lamoTRIgine 100 MG TABLET PO SCH ×2 (09:01→20:01)
[2017-04-19] MEDS: PALIPERIDONE PO SCH (09:01)
[2017-04-19] MEDS: Venlafaxine XR (24 HR) 37.5 MG CAP.ER.24H PO SCH (09:01)
[2017-04-19] MEDS: Nicotine 2 MG GUM BC PRN ×4 (09:21→20:01)
[2017-04-19] MEDS: hydrOXYzine pamoate 25 MG CAPSULE PO PRN (20:00)
[2017-04-19] MEDS: traZODone 50 MG TABLET PO PRN (20:01)
--- NOTE | 2017-04-20 08:14 | Psychiatry Progress Note ---
Date of Encounter: 04/19/17 Time of Encounter: 08:13 Subjective Interval history: Patient seen and evaluated this morning patient was in no acute distress during the evaluation patient was calm and cooperative with the evaluation patient reports she is feeling better patient reports that she is not having any suicidal ideations patient reports she is not having any issues with medication and feels they are helping stabilize her mood. Patient reports she is a visit with [facility] patient has been medication compliant per staff no when necessary's required for agitation or aggression patient has not exhibited any self-harm behaviors. Objective: Exam Patient orientation: Yes Person, Yes Time, Yes Place, Yes Circumstance Level of alertness: Alert Patient appearance: Appropriate Behavior: calm Psychomotor activity: Normal Eye contact: Maintains Eye Contact Mood description: Euthymic/stable Affect description: congruent with mood Speech pattern: Normal rate, Normal rhythm, Normal tone Speech volume: Normal Thought process: Intact Thought content: Yes Intact Judgment: Fair Insight: Partial Results - Vital Signs Vital Signs: Temp Pulse Resp BP Pulse Ox 97.6 F 76 16 109/64 97 04/19/17 20:41 04/19/17 20:41 04/19/17 20:41 04/19/17 20:41 04/12/17 19:44 Assessment and Plan (1) Bipolar 2 disorder, major depressive episode Current visit: No Status: Acute Plan: Continue hospitalization, Group Therapy, Monitor sleep, Monitor appetite Risks, benefits, side effects, alternatives discussed w/pt: Yes Patient agreeable to treatment: Yes Consult Discharge Plan - Plan Referrals: [facility] [Outside] - 06/22/17 8:40 am (The above appointment is with Dr. Traore for outpatient psychiatric assessment and medication management services. Please arrive 10 minutes early to all appointments to complete the check-in process. Please bring your insurance card and photo ID. If you are unable to keep this appointment, 24 hour business notice of cancellation is expected. The above appointment(s) reflects first availability. You may contact the office regularly to check for cancellations that may allow you to be seen sooner. ) [facility] [Outside] - 04/24/17 4:00 pm (The above appointment is with Burt Pelayo for outpatient mental health counseling services. If you are unable to attend this appointment, please contact Burt at [phone].)
[2017-04-20] MEDS: lamoTRIgine 100 MG TABLET PO SCH (08:16)
[2017-04-20] MEDS: Venlafaxine XR (24 HR) 150 MG CAP.ER.24H PO SCH (08:16)
[2017-04-20] MEDS: Venlafaxine XR (24 HR) 37.5 MG CAP.ER.24H PO SCH (08:16)
[2017-04-20] MEDS: Prenatal Vit/FA 1 EACH TABLET PO SCH (08:17)
[2017-04-20] MEDS: lamoTRIgine 25 MG TABLET PO SCH (08:17)
--- NOTE | 2017-04-20 08:17 | Discharge Summary ---
Date of Encounter: 04/20/17 Time of Encounter: 08:14 Diagnosis - Discharge Diagnosis (1) Bipolar 2 disorder, major depressive episode Status: Acute Medications - Discharge Medications Prescriptions: hydrOXYzine pamoate [HydrOXYzine Pamoate] 25 mg PO TID PRN #30 PRN Reason: Anxiety lamoTRIgine [Lamictal] 100 mg PO BID #60 tab lamoTRIgine [Lamictal] 50 mg PO 0900,1500 #60 tab Nicotine Gum [Nicorette gum] 4 mg BC Q2H PRN #60 PRN Reason: Nicotine Cravings Quetiapine Fumarate [Seroquel] 50 mg PO HS #30 tab traZODone [TraZODone] 100 mg PO HS PRN #60 tab PRN Reason: Sleep Venlafaxine XR (24 HR) [Effexor Xr] 150 mg PO DAILY #30 Venlafaxine XR (24 HR) [Effexor Xr] 75 mg PO DAILY #60 Nicotine Gum [Nicorette gum] 4 mg BC Q2H PRN #60 04/20/17 [Rx] Quetiapine Fumarate [Seroquel] 50 mg PO HS #30 tab 04/20/17 [Rx] Venlafaxine XR (24 HR) [Effexor Xr] 75 mg PO DAILY #60 04/20/17 [Rx] Venlafaxine XR (24 HR) [Effexor Xr] 150 mg PO DAILY #30 04/20/17 [Rx] hydrOXYzine pamoate [HydrOXYzine Pamoate] 25 mg PO TID PRN #30 04/20/17 [Rx] lamoTRIgine [Lamictal] 50 mg PO 0900,1500 #60 tab 04/20/17 [Rx] lamoTRIgine [Lamictal] 100 mg PO BID #60 tab 04/20/17 [Rx] traZODone [TraZODone] 100 mg PO HS PRN #60 tab 04/20/17 [Rx] 3 Allergy/AdvReac Type Severity Reaction Status Date / Time Amoxicillin Allergy Rash Verified 04/06/17 14:34 Provider Date of admission: 04/13/17 00:36 Primary care physician: PCP NONE Discharging clinician: Theresa Vazquez Assessment and Plan - Patient/Caregiver Discharge Instructions Activity: resume usual activities as tolerated Diet: regular diet - Follow up Plan Follow up with: [facility] [Outside] - 06/22/17 8:40 am (The above appointment is with Dr. Traore for outpatient psychiatric assessment and medication management services. Please arrive 10 minutes early to all appointments to complete the check-in process. Please bring your insurance card and photo ID. If you are unable to keep this appointment, 24 hour business notice of cancellation is expected. The above appointment(s) reflects first availability. You may contact the office regularly to check for cancellations that may allow you to be seen sooner. ) [facility] [Outside] - 04/24/17 4:00 pm (The above appointment is with Burt Pelayo for outpatient mental health counseling services. If you are unable to attend this appointment, please contact Burt at .) Overall status at discharge: Stable Disposition: Home, Self-Care Hospital Course Hospital course: Ms. Portillo is a 21 year old female admitted to [facility] inpatient psychiatric unit for safety and stabilization. Patient's home medications were continued and reviewed. Throughout the hospital course patient's celexa was disctoninued and she was started on effexor for depression and pt was restarted on lamictal which she was on a few months ago and had worked well to assist with mood symptom stabilization. For sleep pt was started on seroquel along with her traozdone. Patient did not exhibit any side effects to medication he was med compliant while he was on the unit patient participated in groups and was socializing with peers. Patient's sleep and appetite was fair. Patient denied any suicide or homicide ideations. Patient denied any thoughts of self-harm. Patient reports being interested in outpatient medication management and counseling. Patient was discussed for discharge due to patient not being a threat to himself or anyone else. reworker did make contact with patient' s mother. advised medication to be stored in lock cabinet to prevvent pt to take more medication that needed due to pts past hx of impulsive/behavioral impulses. Patient will be returning home on discharge. Time spent discussing smoking cessation with patient: 3 to 10 minutes Does patient wish to continue nicotine replacement upon disc: No - Time Spent with Patient Total time spent providing and/or coordinating discharge services: Less than 30 minutes Quality - Multiple Antipsychotics Patient discharged on 2 or more antipsychotic medications: No Procedures - Procedures Procedures: Medication Management, Crisis Stabilization, Supportive Therapy, Group Therapy, Psychoeducational Therapy Mental Status Exam - Mental Status Exam Patient orientation: Yes Person, Yes Time, Yes Place, Yes Circumstance Level of alertness: Alert Patient appearance: Appropriate Behavior: calm Psychomotor activity: Normal Eye contact: Maintains Eye Contact Mood description: Euthymic/stable Affect description: congruent with mood Speech pattern: Normal rate, Normal rhythm, Normal tone Speech Volume: Normal Thought process: Intact Thought Content: Yes Intact Judgment: Fair Insight: Partial
[2017-04-20] MEDS: PALIPERIDONE PO SCH (08:18)
[2017-04-20] MEDS: Nicotine 2 MG GUM BC PRN (09:00)
[2017-04-20 09:06] VITALS: BP 104/58
[2017-04-20] MEDS: hydrOXYzine pamoate 25 MG CAPSULE PO PRN (09:48)
== END 2017-04-20 12:10 | disposition home or self-care (01) | DRG 753 ==
LOC: EMEROO 12:12 → 1ANU 04-13 00:36 → SUATTDRO 04-13 00:36 → 1ANU 04-13 01:18
PROVIDERS: ADMIT Psychiatry & Neurology Psychiatry; ATTEND Psychiatry & Neurology Psychiatry

== ENCOUNTER 2018-05-24 11:40 | Inpatient (IN) ==
--- NOTE | 2018-05-24 11:57 | Emergency Department Note ---
Disposition Clinical Impression: Suicidal ideations, Bipolar 2 disorder, major depressive episode Disposition: Still a Patient General Adult HPI - General Chief complaint: ED Psychiatric Symptoms Stated complaint: Hearing Voices Time Seen by Provider: 05/24/18 11:50 Source: EMS Limitations: other - History of Present Illness HPI Narrative: ED ATTESTATION NOTE: I examined this patient and my medical decision-making was reviewed with the Resident Physician/TRENCH PIPE LAYER HELPER/PA/Student. I have personally performed a face to face evaluation on this patient & I agree with the documented findings, disposition and treatment plan as described except to the extent set forth below. Patient was seen with emergency medicine resident Dr. Tray Conde please see copy of his note for details of this encounter Briefly: 22-year-old female history of mental health admission when she was a child presents with several days he hearing voices suicidal ideations without discrete plan and severe anxiety. Patient is awake and alert cooperative physical examination is benign. She will undergo medical clearance and evaluation by mental health services. Lunch meal tray being ordered for her. Patient will get 1 mg of oral Ativan. Disposition pending. Pain Scale: 0 - Related Data Home Medications Medication Instructions Recorded Confirmed Duloxetine HCl [Cymbalta] 60 mg PO DAILY 04/03/18 04/03/18 Trazodone HCl 50 mg PO HS 04/03/18 04/03/18 lamoTRIgine [Lamotrigine] 150 mg PO BID 04/03/18 04/03/18 valACYclovir [Valtrex] 500 mg PO BID 04/03/18 04/03/18 Previous Rx's Medication Instructions Recorded HYDROcodone/Acet 7.5/325 mg [[place] 1 tab PO Q6H PRN 4 Days #16 tablet 04/03/18 7.5-325 mg] OxyCODONE/APAP 5/325 [Percocet 1 each PO Q6HR PRN 7 Days #14 04/06/18 5/325 MG] tablet Allergies Allergy/AdvReac Type Severity Reaction Status Date / Time Amoxicillin Allergy Rash Verified 05/24/18 11:54 Past Medical History - Past Medical History Medical history: Reports: no medical history Surgical history: Reports: no surgical history Psychiatric history: Reports: bipolar, prior suicide attempt, previous psychiatric hospitalization 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 history: Reports: no 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 history - Social History Smoking Status: Current every day smoker Smokeless Tobacco Status: No Alcohol use: Reports: none Drug use: Reports: none Physical Exam - General Limitations: other General appearance: alert, anxious Course Vital Signs Temperature 98.3 F 05/24/18 11:41 Pulse Rate 78 05/24/18 11:41 Respiratory Rate 18 05/24/18 11:41 Blood Pressure 134/80 05/24/18 11:41 O2 Sat by Pulse Oximetry 96 05/24/18 11:41 Temperature 98.3 F 05/24/18 11:41 Pulse Rate 78 05/24/18 11:41 Respiratory Rate 18 05/24/18 11:41 Blood Pressure 134/80 05/24/18 11:41 O2 Sat by Pulse Oximetry 96 05/24/18 11:41 Oxygen Delivery Oxygen Delivery Room Air Medical Decision Making - Lab Data Lab Results 05/24/18 Range/Units Unknown Ur Drug Screen Interp See Below
[2018-05-24 12:04] LABS: Bilirubin,Urine Negative (Negative); Blood,Urine Negative (Negative); Clarity,Urine Cloudy (Clear); Color,Urine Yellow (Yellow); Glucose,Urine (UA) Normal (Normal); Ketones,Urine Negative (Negative); Leukocyte Esterase,Urine Moderate (Negative); Nitrite,Urine Negative (Negative); Protein,Urine Trace mg/dL (Neg-Trace); Specific Gravity,Urine > 1.030 (1.010-1.025); Urobilinogen,Urine Normal (Normal)
--- NOTE | 2018-05-24 12:08 | Emergency Department Note ---
Disposition Clinical Impression: Suicidal ideations, Bipolar 2 disorder, major depressive episode, Medical clearance for psychiatric admission Disposition: Admitted As Inpatient Condition: Undetermined Referrals: Perez Valle MD [Primary Care Provider] - Forms: ED Satisfaction Letter Time of Disposition: 14:59 Psych HPI - General Chief Complaint: ED Psychiatric Symptoms Stated Complaint: Hearing Voices Time Seen by Provider: 05/24/18 11:50 Source: patient, EMS Mode of arrival: EMS Limitations: no limitations Nursing Notes Reviewed: Yes Vital Signs Reviewed: Yes - History of Present Illness HPI Narrative: 22-year-old female with extensive history of psychiatric disorders where she is currently being treated for bipolar disorder as well as depression arrives to the emergency department with auditory or visual hallucinations. The patient states she is also having tactile hallucinations over the course of the past couple weeks. She states this progressively get worse. Patient also states that she is having some suicidal ideations due to the concern for not being able to get rid of these hallucinations. The patient states she is very scared. She does not know what to do. Patient does have previous history of psychiatric admissions as well as previous suicidal attempt. The patient denies any suicidal attempts or plan at this time. She is mildly anxious on evaluation in the room. She denies any other complaints at this time. - Related Data Home Medications Medication Instructions Recorded Confirmed Duloxetine HCl [Cymbalta] 60 mg PO DAILY 04/03/18 04/03/18 Trazodone HCl 50 mg PO HS 04/03/18 04/03/18 lamoTRIgine [Lamotrigine] 150 mg PO BID 04/03/18 04/03/18 valACYclovir [Valtrex] 500 mg PO BID 04/03/18 04/03/18 Previous Rx's Medication Instructions Recorded HYDROcodone/Acet 7.5/325 mg [[place] 1 tab PO Q6H PRN 4 Days #16 tablet 04/03/18 7.5-325 mg] OxyCODONE/APAP 5/325 [Percocet 1 each PO Q6HR PRN 7 Days #14 04/06/18 5/325 MG] tablet Allergies Allergy/AdvReac Type Severity Reaction Status Date / Time Amoxicillin Allergy Rash Verified 05/24/18 11:54 All systems ED: reviewed and negative except as stated. Constitutional: Denies: fever, chills, weakness Cardiovascular: Denies: chest pain Respiratory: Denies: dyspnea Gastrointestinal: Denies: abdominal pain Genitourinary: Denies: urgency, dysuria Musculoskeletal: Denies: back pain Integumentary: Denies: rash Neurological: Denies: headache Past Medical History - Past Medical History Attestation: Yes The following information was validated with the patient. 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 history: Reports: no ENTRY LEVEL BUSINESS ANALYST history - Social History Smoking Status: Current every day smoker Smokeless Tobacco Status: No Alcohol use: Reports: none Drug use: Reports: none Physical Exam - General Limitations: other General appearance: alert, anxious - Head Head exam: atraumatic, normocephalic, normal inspection - Eye Eye exam: Present: normal appearance, PERRL, EOMI - ENT ENT exam: normal exam, normal oropharynx, mucous membranes moist - Neck Neck exam: Present: normal inspection, full ROM, trachea midline - Chest Chest inspection: Present: normal inspection, symmetric chest wall rise - Respiratory Respiratory exam: Present: normal lung sounds bilaterally - Cardiovascular Cardiovascular exam: Present: regular rate, normal rhythm, normal heart sounds - Abdominal Exam Abdominal exam: Present: soft, Non-Tender. Absent: tenderness, distention, guarding, rebound, rigidity - Extremities Exam Extremities exam: Present: normal inspection, full ROM. Absent: tenderness, pedal edema - Neurological Exam Neurological exam: Present: alert, oriented X3 - Psychiatric Psychiatric exam: Present: depressed, anxious, suicidal ideation. Absent: flat affect, manic, homicidal ideation - Skin Skin exam: Present: warm, dry, intact, normal color Course - Reevaluation(s) Reevaluation #1: Patient medically cleared. 1A called and will see patient. Time: 13:28 Vital Signs Temperature 98.3 F 05/24/18 11:41 Pulse Rate 78 05/24/18 11:41 Respiratory Rate 18 05/24/18 11:41 Blood Pressure 134/80 05/24/18 11:41 O2 Sat by Pulse Oximetry 96 05/24/18 11:41 Temperature 98.3 F 05/24/18 11:41 Pulse Rate 78 05/24/18 11:41 Respiratory Rate 18 05/24/18 11:41 Blood Pressure 134/80 05/24/18 11:41 O2 Sat by Pulse Oximetry 96 05/24/18 11:41 Oxygen Delivery Oxygen Delivery Room Air Psych - MDM Narrative Medical decision making narrative: Patient was medically cleared. She was evaluated by one a and they will be admitting the patient to their unit. She will be signing a voluntary admission orders we will not place the patient in a pink slip. The patient will be admitted to [facility]. Accepted by Dr. Monroy. No further questions or concerns noted at this time. - Lab Data Result diagrams: 05/24/18 12:18 05/24/18 12:18 Lab Results 05/24/18 05/24/18 05/24/18 Range/Units 12:18 12:18 12:18 WBC 10.3 (4.3-11.1) K/mcL RBC 4.41 (3.82-4.97) M/mcL Hgb 13.8 (11.5-15.4) g/dL Hct 41.5 (35.3-44.9) % MCV 94.1 (83.0-100.0) fL MCH 31.3 (28.0-33.3) pg MCHC 33.3 (31.6-35.5) g/dL RDW 12.5 (11.5-14.5) % Plt Count 301 (140-400) K/mcL MPV 9.3 L (9.4-12.4) fL Immature Gran % 0.3 (0-4) % Seg Neutrophils % 63.4 % Lymphocytes % 28.8 % Monocytes % 5.4 % Eosinophils % 1.5 % Basophils % 0.6 % Neutrophils # 6.6 (1.6-8.9) K/mcL Lymphocytes # 3.0 (0.6-4.6) K/mcL Monocytes # 0.6 (0.0-1.3) K/mcL Eosinophils # 0.2 (0.0-0.6) K/mcL Basophils # 0.1 (0.0-0.2) K/mcL Sodium 138 (136-145) mEq/L Potassium 3.8 (3.5-5.1) mEq/L Chloride 105 (98-107) mEq/L Carbon Dioxide 25 (23-29) mEq/L BUN 9 (6-20) mg/dL Creatinine 0.67 (0.60-1.20) mg/dL Est GFR ( Amer) > 60 (> 60) Est GFR (Non-Af Amer) > 60 (> 60) BUN/Creatinine Ratio 13 (6-26) Glucose 93 (70-105) mg/dL Calculated Osmolality 284 (280-300) Calcium 9.0 (8.6-10.3) mg/dL TSH 1.121 (0.340-5.600) mcIU/mL Serum , Qual Negative (Negative) Urine Color (Yellow) Urine Clarity (Clear) Urine pH (5.0-8.0) pH Units Ur Specific [place] (1.010-1.025) Urine Protein (Neg-Trace) mg/dL Urine Glucose (UA) (Normal) mg/dL Urine Ketones (Negative) mg/dL Urine Blood (Negative) Urine Nitrite (Negative) Urine Bilirubin (Negative) Urine Urobilinogen (Normal) mg/dL Ur Leukocyte Esterase (Negative) Urine Microscopic RBC (0-3) per hpf Urine Microscopic WBC (0-3) per hpf Ur Squamous Epith Cells (None-Few) per lpf Urine Bacteria (None-Few) per hpf Urine Test (Negative) Salicylates < 2.5 L (15.0-30.0) mg/dL Urine Opiates Screen (Qlmamq=222) ng/mL Acetaminophen < 10 L (10-20) mcg/mL Ur Barbiturates Screen (Rwlszp=915) ng/mL Ur Phencyclidine Scrn (Cutoff=25) ng/mL Ur Amphetamines Screen (Gzfmwu=6164) ng/mL U Benzodiazepines Scrn (Odgbhl=345) ng/mL Urine Cocaine Screen (Cutoff= 300) ng/mL U Marijuana (THC) Screen (Cutoff = 50) ng/mL Ur Drug Screen Interp Ethyl Alcohol < 10 (Less than 10) mg/dL 05/24/18 05/24/18 05/24/18 Range/Units Unknown Unknown Unknown WBC (4.3-11.1) K/mcL RBC (3.82-4.97) M/mcL Hgb (11.5-15.4) g/dL Hct (35.3-44.9) % MCV (83.0-100.0) fL MCH (28.0-33.3) pg MCHC (31.6-35.5) g/dL RDW (11.5-14.5) % Plt Count (140-400) K/mcL MPV (9.4-12.4) fL Immature Gran % (0-4) % Seg Neutrophils % % Lymphocytes % % Monocytes % % Eosinophils % % Basophils % % Neutrophils # (1.6-8.9) K/mcL Lymphocytes # (0.6-4.6) K/mcL Monocytes # (0.0-1.3) K/mcL Eosinophils # (0.0-0.6) K/mcL Basophils # (0.0-0.2) K/mcL Sodium (136-145) mEq/L Potassium (3.5-5.1) mEq/L Chloride (98-107) mEq/L Carbon Dioxide (23-29) mEq/L BUN (6-20) mg/dL Creatinine (0.60-1.20) mg/dL Est GFR ( Amer) (> 60) Est GFR (Non-Af Amer) (> 60) BUN/Creatinine Ratio (6-26) Glucose (70-105) mg/dL Calculated Osmolality (280-300) Calcium (8.6-10.3) mg/dL TSH (0.340-5.600) mcIU/mL Serum , Qual (Negative) Urine Color Yellow (Yellow) Urine Clarity Cloudy A (Clear) Urine pH 7.0 (5.0-8.0) pH Units Ur Specific [place] > 1.030 H (1.010-1.025) Urine Protein Trace (Neg-Trace) mg/dL Urine Glucose (UA) Normal (Normal) mg/dL Urine Ketones Negative (Negative) mg/dL Urine Blood Negative (Negative) Urine Nitrite Negative (Negative) Urine Bilirubin Negative (Negative) Urine Urobilinogen Normal (Normal) mg/dL Ur Leukocyte Esterase Moderate H (Negative) Urine Microscopic RBC 0-3 (0-3) per hpf Urine Microscopic WBC TNTC H (0-3) per hpf Ur Squamous Epith Cells Many H (None-Few) per lpf Urine Bacteria Many H (None-Few) per hpf Urine Test Negative (Negative) Salicylates (15.0-30.0) mg/dL Urine Opiates Screen Negative (Hurtxp=526) ng/mL Acetaminophen (10-20) mcg/mL Ur Barbiturates Screen Negative (Vtfrim=016) ng/mL Ur Phencyclidine Scrn Negative (Cutoff=25) ng/mL Ur Amphetamines Screen Negative (Myzagi=2782) ng/mL U Benzodiazepines Scrn Negative (Xtaljm=721) ng/mL Urine Cocaine Screen Negative (Cutoff= 300) ng/mL U Marijuana (THC) Screen Negative (Cutoff = 50) ng/mL Ur Drug Screen Interp See Below Ethyl Alcohol (Less than 10) mg/dL Psychiatric Medical Clearance - Medical Clearance Checklist Medical History: No Social History Section defined Current Vitals: Last Vital Signs Temp 98.3 F 05/24/18 11:41 Pulse 78 05/24/18 11:41 Resp 18 05/24/18 11:41 BP 134/80 05/24/18 11:41 Pulse Ox 96 05/24/18 11:41 Psychiatric Lab Panel: Drug Levels and Toxicity 05/24/18 05/24/18 12:18 Unknown Urine Opiates Screen Negative Acetaminophen < 10 L Ur Barbiturates Screen Negative Ur Phencyclidine Scrn Negative Ur Amphetamines Screen Negative U Benzodiazepines Scrn Negative Urine Cocaine Screen Negative U Marijuana (THC) Screen Negative Ethyl Alcohol < 10 Abnormal Labs: Abnormal lab results MPV 9.3 fL (9.4-12.4) L 05/24/18 12:18 Urine Clarity Cloudy (Clear) A 05/24/18 Unknown Ur Specific [place] > 1.030 (1.010-1.025) H 05/24/18 Unknown Ur Leukocyte Esterase Moderate (Negative) H 05/24/18 Unknown Urine Microscopic WBC TNTC per hpf (0-3) H 05/24/18 Unknown Ur Squamous Epith Cells Many per lpf (None-Few) H 05/24/18 Unknown Urine Bacteria Many per hpf (None-Few) H 05/24/18 Unknown Salicylates < 2.5 mg/dL (15.0-30.0) L 05/24/18 12:18 Acetaminophen < 10 mcg/mL (10-20) L 05/24/18 12:18 Statement of Medical Clearance: I have evaluated the patient, reviewed diagnostic information, and certify that the patient's medical condition is sufficiently stable that transfer to the psychiatric unit does not pose a significant risk of deterioration.
[2018-05-24 12:09] LABS: Bacteria,Urine Many per hpf (None-Few); Squamous Epithelial Cell,Urine Many per lpf (None-Few); WBC,Urine TNTC per hpf (0-3)
[2018-05-24 12:10] LABS: RBC,Urine 0-3 per hpf (0-3)
[2018-05-24 12:13] LABS: Amphetamine Screen,Urine Negative ng/mL (Cutoff=1000); Barbiturate Screen,Urine Negative ng/mL (Cutoff=200); Benzodiazepines Screen,Urine Negative ng/mL (Cutoff=200); Cannabinoid Screen,Urine Negative ng/mL (Cutoff = 50); Cocaine Screen,Urine Negative ng/mL (Cutoff= 300); Opiate Screen,Urine Negative ng/mL (Cutoff=300); Phencyclidine Screen,Urine Negative ng/mL (Cutoff=25)
[2018-05-24] MEDS ORDERED: *HR* LORazepam 1 MG TABLET PO ONE (12:21)
[2018-05-24] MEDS ORDERED: cephALEXin 500 MG CAPSULE PO STA (12:24)
[2018-05-24 12:33] LABS: Basophils # 0.1 K/mcL (0.0-0.2); Basophils % 0.6 %; Eosinophils # 0.2 K/mcL (0.0-0.6); Eosinophils % 1.5 %; Hematocrit 41.5 % (35.3-44.9); Hemoglobin 13.8 g/dL (11.5-15.4); Immature Granulocytes % 0.3 % (0-4); Lymphocytes % 28.8 %; Mean Corpuscular HGB Conc 33.3 g/dL (31.6-35.5); Mean Corpuscular Hemoglobin 31.3 pg (28.0-33.3); Mean Corpuscular Volume 94.1 fL (83.0-100.0); Mean Platelet Volume 9.3 fL (9.4-12.4); Monocytes # 0.6 K/mcL (0.0-1.3); Monocytes % 5.4 %; Neutrophils # 6.6 K/mcL (1.6-8.9); Platelet Count 301 K/mcL (140-400); Red Blood Count 4.41 M/mcL (3.82-4.97); Red Cell Distribution Width 12.5 % (11.5-14.5); Segmented Neutrophils % 63.4 %
[2018-05-24 13:05] LABS: Thyroid Stimulating Hormone 1.121 mcIU/mL (0.340-5.600)
[2018-05-24 13:16] LABS: Acetaminophen < 10 mcg/mL (10-20); BUN/Creatinine Ratio 13 (6-26); Blood Urea Nitrogen 9 mg/dL (6-20); Carbon Dioxide 25 mEq/L (23-29); Chloride 105 mEq/L (98-107); Ethanol < 10 mg/dL (Less than 10); Glucose 93 mg/dL (70-105); Osmolality,Calculated 284 (280-300); Potassium 3.8 mEq/L (3.5-5.1); Salicylate < 2.5 mg/dL (15.0-30.0); Sodium 138 mEq/L (136-145); eGFR For Non-African Americans > 60 (> 60)
[2018-05-24] MEDS ORDERED: Nicotine 2 MG GUM BC PRN (16:52)
[2018-05-24] MEDS ORDERED: Mag Hydrox/Al Hydrox/Simeth 30 ML UDC PO PRN (16:52)
[2018-05-24] MEDS ORDERED: *HR* LORazepam 1 MG TABLET PO PRN (16:52)
[2018-05-24] MEDS ORDERED: traZODone 50 MG TABLET PO PRN (16:52)
[2018-05-24] MEDS ORDERED: MOM Conc 10 ML UD.LIQ PO PRN (16:52)
[2018-05-24] MEDS ORDERED: Haloperidol Lactate 5 MG/ML VIAL IM PRN (16:52)
[2018-05-24] MEDS ORDERED: Ibuprofen 400 MG TABLET PO PRN (16:52)
[2018-05-24] MEDS ORDERED: *HR* LORazepam 2 MG/ML VIAL IM PRN (16:52)
[2018-05-24] MEDS: hydrOXYzine pamoate 25 MG CAPSULE PO PRN (20:13)
[2018-05-24] MEDS: lamoTRIgine 100 MG TABLET PO SCH (21:02)
[2018-05-24] MEDS: traZODone 50 MG TABLET PO SCH (21:02)
[2018-05-24] MEDS: valACYclovir 500 MG TABLET PO SCH (21:03)
[2018-05-25] MEDS: valACYclovir 500 MG TABLET PO SCH ×2 (09:32→20:52)
[2018-05-25] MEDS: lamoTRIgine 100 MG TABLET PO SCH ×2 (09:32→20:52)
--- NOTE | 2018-05-25 12:08 | Psychiatry History & Physical ---
Date of Encounter: 05/25/18 Time of Encounter: 12:00 History of Present Illness Patient Stated Chief Complaint: I was hearing voices Medicare Admission Attestation: For traditional Medicare patients the provided hospital inpatient services are reasonable and necessary and in the case of services not specified as inpatient -only under 42 CFR 419.22 (n), that they are appropriately provided as inpatient services in accordance 42 CFR 412.3. For Critical Access Hospital the patient may reasonably be expected to be discharged or transferred to a hospital within 96 hours after admission to the Critical Access Hospital. Admitted From: Emergency Dept Plans for Post Hospital Care: Home History of Present Illness: Ms. Portillo is a 22 year old female Chief complaint I was hearing voices and felt like killing myself. The ear present illness:. 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 In these hospitalizations the patient has reported a variety of hallucinations. Nonetheless on an outpatient basis the patient's been treated primarily for bipolar type II. Her treatment includes Cymbalta trazodone and lamotrigine. The patient awoke yesterday and heard the voice of a child. This is a voice that comes and wakes her up in the middle of the night and she became distressed and presented to the emergency room. The patient called the squad and she also reported suicidal thoughts. He she also talked about evil black shape. In our interview the patient reported auditory hallucinations of a man and woman. She also heard a small child that was not child that she knew was like her. The patient also had tactile hallucinations and reported sensations like spiders crawling over when she turned the light on and she could not see anything she denied the visual hallucination had olfactory hallucinations smelling of perfume that she could not account for and gustatory hallucinations which were the occasional metallic taste. The patient had a full depressive syndrome and did not seem to have features of damon at this time. Past psychiatric history. The patient was raised in [place] and at age 19 came to [place] so her prior history includes a hospitalization as an adolescent where she was kept in [place] and the 2 hospitalizations at [facility] 1 day she is a fair to poor historian so she cannot tell us of all of these. She has reported for suicide attempts some with a knife. But then said these might of been to relieve stress. At age 19 she moved to [place] to be with her mother's sister and brother prior to that she had lived in [place] with an adoptive mother and brother. The patient next described an extensive history of substance abuse at age 16 or 17 she began using cocaine and methamphetamine. She also smoked K2 while in [place] and develop some seizures thereafter. No workup for the seizures can be found in [facility] records. The patient became and decided to stop using drugs and alcohol she has not resumed these and her son is now almost 4 years old she did not attend AA she did not go to rehabilitation. The patient reported first rank schneiderian symptoms of thought withdrawal but no others were present. Past medical history surgery on the right thumb tendon reattachment in 2018 cholecystectomy in 2018 extraction of teeth 201 have not teen. The patient is scheduled to be fitted for dentures. Illnesses none allergies amoxicillin. She is ABL. She has Dr. 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 The patient on Cymbalta Lamictal naltrexone and trazodone. The patient was given 1 dose of Keflex as she had a urinary tract infection with white blood cells too numerous to count. Family history mother has a neuropathy a sister has a neuropathy and is on Neurontin. The patient's mother and dad had problems with alcohol all and her dad had a relapse. There is one completed suicide in a maternal cousin. Social history the patient graduated high school. She did drugs for a few months and she has applied for social security SSI under mental but has been turned down. She lives with a variety of family members including her 3 almost 4-year-old son. She denied alcohol or drugs of abuse. She denied having a gun in the house. She was last employed in 2017 and says that she cannot hold a job because she becomes distressed. Formulation. This patient presents with a depressive mood disorder and some psychosis. The psychosis appears to be more chronic and persistent. The patient cannot describe a long period of time where auditory hallucinations or tactile hallucinations, way. The previous diagnosis of bipolar 2 can be changed to bipolar 1 depressed phase severe with psychosis to reflect the presence of ongoing psychosis. This will allow us to treat her with anti- psychotic medicines. I discussed some options she says Abilify made her mean she is overweight so I will consider a weight neutral medicine. She agreed to a trial of Geodon. She has limited intellectual function but appears to be competent under the eyes of law and to make decisions regarding medical treatment health. Keflex will be continued for the UTI Past Med Surg Social Fam HX - Past Medical History Medical history: no medical history, seizures - Past Psychiatric History Psychiatric history: Reports: other Family psychiatric history: Yes Family History of Suicide: Completed - Past Surgical History Surgical History: no surgical history, cholecystectomy - Social History Smoking Status: Current every day smoker Smokeless Tobacco Status: No Alcohol use: none Drug use: none Occupational status: previously employed Current living situation: Home - Independent Activity Level: Independent ambulation Recent Out of Country Travel Within the Last 8 Weeks: Yes Exposure or Possible Exposure to Illness During Travel: Yes - Family History Mother Hx Family Respiratory Disorders: Yes (asthma) Medications & Allergies Duloxetine HCl [Cymbalta] 60 mg PO DAILY 04/03/18 [History] Trazodone HCl 50 mg PO HS 04/03/18 [History] lamoTRIgine [Lamotrigine] 150 mg PO BID 04/03/18 [History] valACYclovir [Valtrex] 500 mg PO BID 04/03/18 [History] 3 Allergy/AdvReac Type Severity Reaction Status Date / Time Amoxicillin Allergy Rash Verified 05/24/18 11:54 Review of Systems Psychiatric: Reports: depression, abnormal sleep pattern, suicidal ideation, auditory hallucinations, hopelessness Exam - HEENT Head exam IM: Present: atraumatic Eye exam IM: Present: EOMI, normal appearance, PERRL ENT exam IM: Present: normal exam - Neurological Neurological exam: Present: CN II-XII intact - Respiratory Respiratory exam IM: Present: CTAB - GI/Abdominal GI/Abdominal exam IM: Present: normal bowel sounds, soft. Absent: tenderness - Extremities Extremities exam IM: Present: full ROM - Skin Skin exam IM: Present: dry, warm - Additional Information Additional Information: wine colored spot over right malar - Constitutional Vitals: Temp Pulse Resp BP Pulse Ox 98.3 F 82 16 110/73 96 05/25/18 09:00 05/25/18 09:00 05/25/18 09:00 05/25/18 09:00 05/24/18 11:41 General appearance: age & developmentally appropriate, well-groomed, well- nourished - Musculoskeletal Gait: normal Station: relaxed Strength & Tone: normal for patient - Psychiatric Patient Orientation: Yes Person, Yes Time, Yes Place Level of alertness: Alert Behavior: calm, cooperative Psychomotor activity: Slowed Eye Contact: Maintains Eye Contact Mood Description: Depressed Affect description: congruent with mood, blunted, dysphoric Speech Volume: Normal Speech pattern: normal rate, normal rhythm, normal tone, fluent, spontaneous, limited Language & Vocabulary: consistent with education Thought Process: Linear, Goal Oriented Thought Content: Yes Suicidal ideation, No Homicidal ideation, No Overt delusions Perceptual Disturbances: Yes Auditory hallucinations, No Visual hallucinations, Yes Tactile hallucinations, Yes Olfactory hallucinations, Yes Gustatory hallucinations Attention Span Ability: Capable of Focused Attention Memory Description: Grossly Intact Patient Reliability: Questionable Historian Fund of knowledge: Yes below average Intelligence Estimate: Below Average Judgment: Fair Insight: Partial Results - Drug Levels and Toxicology Drug Levels and Toxicology: Drug Levels and Toxicity 05/24/18 Unknown Urine Opiates Screen Negative Ur Barbiturates Screen Negative Ur Phencyclidine Scrn Negative Ur Amphetamines Screen Negative U Benzodiazepines Scrn Negative Urine Cocaine Screen Negative U Marijuana (THC) Screen Negative - Labs Labs: Laboratory Last Values WBC 10.3 K/mcL (4.3-11.1) 05/24/18 12:18 RBC 4.41 M/mcL (3.82-4.97) 05/24/18 12:18 Hgb 13.8 g/dL (11.5-15.4) 05/24/18 12:18 Hct 41.5 % (35.3-44.9) 05/24/18 12:18 MCV 94.1 fL (83.0-100.0) 05/24/18 12:18 MCH 31.3 pg (28.0-33.3) 05/24/18 12:18 MCHC 33.3 g/dL (31.6-35.5) 05/24/18 12:18 RDW 12.5 % (11.5-14.5) 05/24/18 12:18 Plt Count 301 K/mcL (140-400) 05/24/18 12:18 MPV 9.3 fL (9.4-12.4) L 05/24/18 12:18 Immature Gran % 0.3 % (0-4) 05/24/18 12:18 Seg Neutrophils % 63.4 % 05/24/18 12:18 Lymphocytes % 28.8 % 05/24/18 12:18 Monocytes % 5.4 % 05/24/18 12:18 Eosinophils % 1.5 % 05/24/18 12:18 Basophils % 0.6 % 05/24/18 12:18 Neutrophils # 6.6 K/mcL (1.6-8.9) 05/24/18 12:18 Lymphocytes # 3.0 K/mcL (0.6-4.6) 05/24/18 12:18 Monocytes # 0.6 K/mcL (0.0-1.3) 05/24/18 12:18 Eosinophils # 0.2 K/mcL (0.0-0.6) 05/24/18 12:18 Basophils # 0.1 K/mcL (0.0-0.2) 05/24/18 12:18 Sodium 138 mEq/L (136-145) 05/24/18 12:18 Potassium 3.8 mEq/L (3.5-5.1) 05/24/18 12:18 Chloride 105 mEq/L (98-107) 05/24/18 12:18 Carbon Dioxide 25 mEq/L (23-29) 05/24/18 12:18 BUN 9 mg/dL (6-20) 05/24/18 12:18 Creatinine 0.67 mg/dL (0.60-1.20) 05/24/18 12:18 Est GFR ( Amer) > 60 (> 60) 05/24/18 12:18 Est GFR (Non-Af Amer) > 60 (> 60) 05/24/18 12:18 BUN/Creatinine Ratio 13 (6-26) 05/24/18 12:18 Glucose 93 mg/dL (70-105) 05/24/18 12:18 Calculated Osmolality 284 (280-300) 05/24/18 12:18 Calcium 9.0 mg/dL (8.6-10.3) 05/24/18 12:18 TSH 1.121 mcIU/mL (0.340-5.600) 05/24/18 12:18 Serum , Qual Negative (Negative) 05/24/18 12:18 Urine Color Yellow (Yellow) 05/24/18 Unknown Urine Clarity Cloudy (Clear) A 05/24/18 Unknown Urine pH 7.0 pH Units (5.0-8.0) 05/24/18 Unknown Ur Specific [place] > 1.030 (1.010-1.025) H 05/24/18 Unknown Urine Protein Trace mg/dL (Neg-Trace) 05/24/18 Unknown Urine Glucose (UA) Normal mg/dL (Normal) 05/24/18 Unknown Urine Ketones Negative mg/dL (Negative) 05/24/18 Unknown Urine Blood Negative (Negative) 05/24/18 Unknown Urine Nitrite Negative (Negative) 05/24/18 Unknown Urine Bilirubin Negative (Negative) 05/24/18 Unknown Urine Urobilinogen Normal mg/dL (Normal) 05/24/18 Unknown Ur Leukocyte Esterase Moderate (Negative) H 05/24/18 Unknown Urine Microscopic RBC 0-3 per hpf (0-3) 05/24/18 Unknown Urine Microscopic WBC TNTC per hpf (0-3) H 05/24/18 Unknown Ur Squamous Epith Cells Many per lpf (None-Few) H 05/24/18 Unknown Urine Bacteria Many per hpf (None-Few) H 05/24/18 Unknown Urine Test Negative (Negative) 05/24/18 Unknown Salicylates < 2.5 mg/dL (15.0-30.0) L 05/24/18 12:18 Urine Opiates Screen Negative ng/mL (Fqdwpd=382) 05/24/18 Unknown Acetaminophen < 10 mcg/mL (10-20) L 05/24/18 12:18 Ur Barbiturates Screen Negative ng/mL (Cieblm=917) 05/24/18 Unknown Ur Phencyclidine Scrn Negative ng/mL (Cutoff=25) 05/24/18 Unknown Ur Amphetamines Screen Negative ng/mL (Mzuwpg=7225) 05/24/18 Unknown U Benzodiazepines Scrn Negative ng/mL (Hpyeee=130) 05/24/18 Unknown Urine Cocaine Screen Negative ng/mL (Cutoff= 300) 05/24/18 Unknown U Marijuana (THC) Screen Negative ng/mL (Cutoff = 50) 05/24/18 Unknown Ur Drug Screen Interp See Below 05/24/18 Unknown Ethyl Alcohol < 10 mg/dL (Less than 10) 05/24/18 12:18 Assessment and Plan (1) Bipolar disorder, current episode depressed, severe, with psychotic features Current visit: Yes Status: Acute Plan: Admit inpatient for safety and stabilization, Close observation, Suicide Precautions per unit protocol, Encourage participation in unit milieu, Group Therapy, Monitor sleep, Monitor appetite, Secure weapons Risks, benefits, side effects, alternatives discussed w/pt: Yes Patient agreeable to treatment : Yes Plans for Post Hospital Care: Home Estimated Length of Stay (Days): 10 (2) Suicidal ideation Current visit: Yes Status: Acute Plan: Suicide Precautions per unit protocol, Secure weapons Risks, benefits, side effects, alternatives discussed w/pt: Yes Patient agreeable to treatment : Yes Plans for Post Hospital Care: Home (3) Intellectual disability Current visit: No Status: Chronic Plan: Family/Supportive other meeting Risks, benefits, side effects, alternatives discussed w/pt: No Patient agreeable to treatment: No Plans for Post Hospital Care: Home (4) UTI (urinary tract infection) Current visit: Yes Status: Acute Plan: Other Risks, benefits, side effects, alternatives discussed w/pt: Yes Patient agreeable to treatment: Yes Plans for Post Hospital Care: Home Qualifiers: Urinary tract infection type: acute cystitis Hematuria presence: without hematuria Qualified Code(s): N30.00 - Acute cystitis without hematuria
[2018-05-25] MEDS: hydrOXYzine pamoate 25 MG CAPSULE PO PRN (15:22)
[2018-05-25] MEDS: Ziprasidone 20 MG CAPSULE PO SCH (20:52)
[2018-05-25] MEDS: traZODone 50 MG TABLET PO SCH (20:52)
[2018-05-25] MEDS: cephALEXin 500 MG CAPSULE PO SCH (20:52)
[2018-05-26] MEDS: Ziprasidone 20 MG CAPSULE PO SCH ×2 (09:41→20:02)
[2018-05-26] MEDS: lamoTRIgine 100 MG TABLET PO SCH ×2 (09:41→20:02)
[2018-05-26] MEDS: cephALEXin 500 MG CAPSULE PO SCH ×2 (09:42→20:03)
[2018-05-26] MEDS: valACYclovir 500 MG TABLET PO SCH ×2 (09:42→20:02)
--- NOTE | 2018-05-26 12:55 | Psychiatry Progress Note ---
Date of Encounter: 05/26/18 Time of Encounter: 12:53 Subjective Interval history: Patient seen for follow-up. Case discussed with nursing staff. Progress notes and medication and labs were reviewed. Staff report patient is medication compliant, denied auditory hallucinations. She is interacting with staff and peers. Denied feeling depressed or suicidal. She is concrete in communication. Limited abilities in conversation. Review of Systems Psychiatric: Reports: depression, abnormal sleep pattern, suicidal ideation, auditory hallucinations, hopelessness Results - Vital Signs Vital Signs: Temp Pulse Resp BP Pulse Ox 98.6 F 77 16 121/81 96 05/26/18 09:00 05/26/18 09:00 05/26/18 09:00 05/26/18 09:00 05/26/18 09:00 Assessment and Plan (1) Bipolar disorder, current episode depressed, severe, with psychotic features Current visit: Yes Status: Acute Plan: Continue hospitalization, Close observation, Suicide Precautions per unit protocol, Encourage participation in unit milieu, Group Therapy, Monitor sleep, Monitor appetite Risks, benefits, side effects, alternatives discussed w/pt: Yes Patient agreeable to treatment: Yes Consult Discharge Plan - Plan Referrals: [facility] [Outside] - 06/13/18 10:20 am (The above appointment is with Dr. Traore for outpatient psychiatric assessment and medication management services.) [facility] [Outside] - 06/05/18 10:00 am (The above appointment is with Keyshawn Nicholson for outpatient mental health counseling services.) Psychiatry Exam - Constitutional Vitals: Temp Pulse Resp BP Pulse Ox 98.6 F 77 16 121/81 96 05/26/18 09:00 05/26/18 09:00 05/26/18 09:00 05/26/18 09:00 05/26/18 09:00 General appearance: age & developmentally appropriate, well-groomed, well- nourished, obese - Musculoskeletal Gait: normal Station: relaxed Strength & Tone: normal for patient - Psychiatric Patient Orientation: Yes Person, Yes Time, Yes Place Level of alertness: Alert Behavior: calm, cooperative, guarded Psychomotor activity: Normal Eye Contact: Maintains Eye Contact Mood Description: Euthymic/stable Affect description: congruent with mood, euthymic Speech Volume: Normal Speech pattern: normal rate, normal rhythm, normal tone, fluent, spontaneous, limited Language & Vocabulary: consistent with education Thought Process: Linear, Goal Oriented, [place] Thought Content: No Suicidal ideation, No Homicidal ideation, No Overt delusions Perceptual Disturbances: No Auditory hallucinations, No Visual hallucinations Attention Span Ability: Capable of Focused Attention Memory Description: Grossly Intact Patient Reliability: Reliable Historian Fund of knowledge: Yes abstraction ability, Yes below average, Yes aware of current events Intelligence Estimate: Below Average Judgment: Limited Insight: Partial
[2018-05-26] MEDS: traZODone 50 MG TABLET PO SCH (20:02)
[2018-05-27] MEDS: Ziprasidone 20 MG CAPSULE PO SCH ×2 (08:31→20:13)
[2018-05-27] MEDS: valACYclovir 500 MG TABLET PO SCH ×2 (08:31→20:13)
[2018-05-27] MEDS: lamoTRIgine 100 MG TABLET PO SCH ×2 (08:31→20:13)
[2018-05-27] MEDS: cephALEXin 500 MG CAPSULE PO SCH ×2 (08:31→20:13)
--- NOTE | 2018-05-27 14:51 | Psychiatry Progress Note ---
Date of Encounter: 05/27/18 Time of Encounter: 14:30 Subjective Interval history: Patient seen for follow-up. Case discussed with nursing staff. Staff report patient is medication compliant, denies any auditory or visual hallucinations. She denies any problem with sleep or appetite. She spent her time coloring pictures and she enjoyed that. She denied any side effects from the medication and anxious to be discharged. Review of Systems Psychiatric: Reports: depression, abnormal sleep pattern, suicidal ideation, auditory hallucinations, hopelessness Results - Vital Signs Vital Signs: Temp Pulse Resp BP Pulse Ox 98.9 F 77 16 124/78 98 05/27/18 08:43 05/27/18 08:43 05/27/18 08:43 05/27/18 08:43 05/27/18 08:43 Assessment and Plan (1) Bipolar disorder, current episode depressed, severe, with psychotic features Current visit: Yes Status: Acute Plan: Continue hospitalization, Close observation, Suicide Precautions per unit protocol, Encourage participation in unit milieu, Group Therapy, Monitor sleep, Monitor appetite Risks, benefits, side effects, alternatives discussed w/pt: Yes Patient agreeable to treatment: Yes Consult Discharge Plan - Plan Referrals: [facility] [Outside] - 06/13/18 10:20 am (The above appointment is with Dr. Traore for outpatient psychiatric assessment and medication management services.) [facility] [Outside] - 06/05/18 10:00 am (The above appointment is with Keyshawn Nicholson for outpatient mental health counseling services.) Psychiatry Exam - Constitutional Vitals: Temp Pulse Resp BP Pulse Ox 98.9 F 77 16 124/78 98 05/27/18 08:43 05/27/18 08:43 05/27/18 08:43 05/27/18 08:43 05/27/18 08:43 General appearance: age & developmentally appropriate, well-groomed, well- nourished, obese - Musculoskeletal Gait: normal Station: relaxed Strength & Tone: normal for patient - Psychiatric Patient Orientation: Yes Person, Yes Time, Yes Place Level of alertness: Alert Behavior: calm, cooperative, guarded Psychomotor activity: Normal Eye Contact: Maintains Eye Contact Mood Description: Euthymic/stable Affect description: congruent with mood, full range Speech Volume: Normal Speech pattern: normal rate, normal rhythm, normal tone, fluent, spontaneous, limited Language & Vocabulary: consistent with education Thought Process: Linear, Goal Oriented, [place] Thought Content: No Suicidal ideation, No Homicidal ideation, No Overt delusions Perceptual Disturbances: No Auditory hallucinations, No Visual hallucinations Attention Span Ability: Capable of Focused Attention Memory Description: Grossly Intact Patient Reliability: Reliable Historian Fund of knowledge: Yes abstraction ability, Yes aware of current events Intelligence Estimate: Average Judgment: Limited Insight: Partial
[2018-05-27] MEDS: traZODone 50 MG TABLET PO SCH (20:13)
[2018-05-27] MEDS: hydrOXYzine pamoate 25 MG CAPSULE PO PRN (22:37)
[2018-05-28] MEDS: Ziprasidone 20 MG CAPSULE PO SCH (08:45)
[2018-05-28] MEDS: lamoTRIgine 100 MG TABLET PO SCH (08:45)
[2018-05-28] MEDS: cephALEXin 500 MG CAPSULE PO SCH (08:45)
[2018-05-28] MEDS: valACYclovir 500 MG TABLET PO SCH (08:46)
[2018-05-28 09:38] VITALS: BP 125/79
--- NOTE | 2018-05-28 10:05 | Discharge Summary ---
Date of Encounter: 05/28/18 Time of Encounter: 09:57 Diagnosis - Discharge Diagnosis (1) Bipolar disorder, current episode depressed, severe, with psychotic features Status: Acute Medications - Discharge Medications Prescriptions: cephALEXin [Keflex] 500 mg PO BID #7 capsule Ziprasidone [Geodon] 20 mg PO BID #30 capsule Duloxetine HCl [Cymbalta] 60 mg PO DAILY 04/03/18 [History] Trazodone HCl 50 mg PO HS 04/03/18 [History] lamoTRIgine [Lamotrigine] 150 mg PO BID 04/03/18 [History] valACYclovir [Valtrex] 500 mg PO BID 04/03/18 [History] Ziprasidone [Geodon] 20 mg PO BID #30 capsule 05/28/18 [Rx] cephALEXin [Keflex] 500 mg PO BID #7 capsule 05/28/18 [Rx] 3 Allergy/AdvReac Type Severity Reaction Status Date / Time Amoxicillin Allergy Rash Verified 05/24/18 11:54 Provider Date of admission: 05/24/18 15:02 Primary care physician: PCP NONE Consults: 05/24/18 15:59 Consult to Pastoral Services [CONS] Routine Comment: 05/24/18 16:07 Consult to Pastoral Services [CONS] Routine Comment: Discharging clinician: Elmer Manuel Psychiatry Exam - Constitutional Vitals: Temp Pulse Resp BP Pulse Ox 98.5 F 81 20 125/79 96 05/28/18 09:00 05/28/18 09:00 05/28/18 09:00 05/28/18 09:00 05/28/18 09:00 General appearance: age & developmentally appropriate, well-groomed, well- nourished, obese - Musculoskeletal Gait: normal Station: relaxed Strength & Tone: normal for patient - Psychiatric Patient Orientation: Yes Person, Yes Time, Yes Place Level of alertness: Alert Behavior: calm, cooperative Psychomotor activity: Normal Eye Contact: Maintains Eye Contact Mood Description: Euthymic/stable Affect description: congruent with mood, full range Speech Volume: Normal Speech pattern: normal rate, normal rhythm, normal tone, fluent, spontaneous Language & Vocabulary: consistent with education Thought Process: Linear, Goal Oriented Thought Content: No Suicidal ideation, No Homicidal ideation, No Overt delusions Perceptual Disturbances: No Auditory hallucinations, No Visual hallucinations Attention Span Ability: Capable of Focused Attention Memory Description: Grossly Intact Patient Reliability: Reliable Historian Fund of knowledge: Yes abstraction ability, Yes aware of current events Intelligence Estimate: Average Judgment: Limited Insight: Partial Hospital Course Hospital course: Ms. Portillo is a 22 year old female admitted for evaluation of auditory hallucinations and poor response to medication. For details admission please see H&P On the unit patient was started on Geodon, she tolerated the medication and responded positively, she reported no auditory hallucinations and reported improved sleep and appetite. She participated in group activities, she was medication compliant. She was educated about medication compliance and side effects of medication. Discharge plans were completed by social work. On discharge patient was medically stable, compliant with medication. She denied any auditory or visual hallucinations she denied any suicidal ideation. She was future oriented and aware of her discharge plans. She is discharged in stable condition. - Time Spent with Patient Total time spent providing and/or coordinating discharge services: Less than 30 minutes Assessment and Plan - Patient/Caregiver Discharge Instructions Activity: resume usual activities as tolerated Diet: regular diet - Follow up Plan Follow up with: [facility] [Outside] - 06/13/18 10:20 am (The above appointment is with Dr. Traore for outpatient psychiatric assessment and medication management services.) [facility] [Outside] - 06/05/18 10:00 am (The above appointment is with Keyshawn Nicholson for outpatient mental health counseling services.) Functional capacity at discharge: independent ambulation Overall status at discharge: Stable Disposition: Home, Self-Care Quality - Multiple Antipsychotics Patient discharged on 2 or more antipsychotic medications: No Procedures - Procedures Procedures: Medication Management, Crisis Stabilization, Supportive Therapy, Group Therapy, Psychoeducational Therapy
== END 2018-05-28 11:00 | disposition home or self-care (01) | DRG 753 ==
LOC: EMEROOARM 11:40 → 1ANU 15:02 → SUATTDRO 15:02 → 1ANU 15:19
PROVIDERS: ADMIT Psychiatry & Neurology Forensic Psychiatry; ATTEND Psychiatry & Neurology Psychiatry

== ENCOUNTER 2021-10-11 15:59 | Inpatient (IN) ==
[2021-10-11 16:47] LABS: Basophils # 0.1 K/mcL (0.0-0.2); Basophils % 0.5 %; Eosinophils # 0.2 K/mcL (0.0-0.6); Eosinophils % 1.8 %; Hematocrit 40.7 % (35.3-44.9); Hemoglobin 13.6 g/dL (11.5-15.4); Immature Granulocytes % 0.4 % (0-4); Lymphocytes # 3.1 K/mcL (0.6-4.6); Lymphocytes % 25.5 %; Mean Corpuscular HGB Conc 33.4 g/dL (31.6-35.5); Mean Corpuscular Hemoglobin 31.1 pg (28.0-33.3); Mean Corpuscular Volume 93.1 fL (83.0-100.0); Mean Platelet Volume 9.5 fL (9.4-12.4); Monocytes % 8.1 %; Neutrophils # 7.7 K/mcL (1.6-8.9); Platelet Count 320 K/mcL (140-400); Red Blood Count 4.37 M/mcL (3.82-4.97); Red Cell Distribution Width 13.9 % (11.5-14.5); Segmented Neutrophils % 63.7 %
[2021-10-11 17:03] LABS: Amphetamine Screen,Urine Negative ng/mL (Cutoff=1000); Barbiturate Screen,Urine Negative ng/mL (Cutoff=200); Benzodiazepines Screen,Urine Negative ng/mL (Cutoff=200); Cannabinoid Screen,Urine Negative ng/mL (Cutoff = 50); Cocaine Screen,Urine Negative ng/mL (Cutoff= 300); Opiate Screen,Urine Negative ng/mL (Cutoff=300); Phencyclidine Screen,Urine Negative ng/mL (Cutoff=25)
[2021-10-11 17:06] LABS: Acetaminophen < 10 mcg/mL (10-20); BUN/Creatinine Ratio 14 (6-26); Blood Urea Nitrogen 9 mg/dL (6-20); Calcium 9.2 mg/dL (8.6-10.3); Carbon Dioxide 26 mEq/L (23-29); Chloride 104 mEq/L (98-107); Ethanol < 10 mg/dL (Less than 10); Glucose 99 mg/dL (70-105); Osmolality,Calculated 283 (280-300); Potassium 3.8 mEq/L (3.5-5.1); Salicylate < 2.5 mg/dL (15.0-30.0); Sodium 137 mEq/L (136-145); eGFR For African Americans > 60 (> 60); eGFR For Non-African Americans > 60 (> 60)
[2021-10-11 17:09] LABS: Bacteria,Urine Few per hpf (None-Few); Bilirubin,Urine Negative (Negative); Blood,Urine Large (Negative); Calcium Oxalate Crystals,Urine Present per hpf; Clarity,Urine Clear (Clear); Color,Urine Yellow (Yellow); Glucose,Urine (UA) Normal (Normal); Ketones,Urine Negative (Negative); Leukocyte Esterase,Urine Trace (Negative); Mucus,Urine Moderate per lpf (None-Few); Nitrite,Urine Negative (Negative); PH,Urine 6.5 pH Units (5.0-8.0); Protein,Urine 50 mg/dL (Neg-Trace); RBC,Urine 50-100 per hpf (0-3); Specific Gravity,Urine > 1.030 (1.010-1.025); Squamous Epithelial Cell,Urine Moderate per hpf (None-Few)
[2021-10-11 19:30] LABS: Influenza A PCR Negative (Negative); Influenza B PCR Negative (Negative); Resp. Syncytial Virus PCR Negative (Negative); SARS-CoV-2 by PCR (In House) Negative (Negative)
[2021-10-11] MEDS ORDERED: traZODone 50 MG TABLET PO PRN (20:09)
[2021-10-11] MEDS ORDERED: *HR* LORazepam 1 MG TABLET PO PRN (20:09)
[2021-10-11] MEDS ORDERED: haloperidoL 5 MG TABLET PO PRN (20:09)
[2021-10-11] MEDS ORDERED: hydrOXYzine pamoate 25 MG CAPSULE PO PRN (20:09)
[2021-10-11] MEDS ORDERED: Ibuprofen 400 MG TABLET PO PRN (20:09)
[2021-10-11] MEDS ORDERED: Haloperidol Lactate 5 MG/ML VIAL IM PRN (20:09)
[2021-10-11] MEDS ORDERED: Acetaminophen 325 MG TABLET PO PRN (20:09)
[2021-10-11] MEDS ORDERED: *HR* LORazepam 2 MG/ML VIAL IM PRN (20:09)
[2021-10-11] MEDS ORDERED: traZODone 50 MG TABLET PO SCH (21:00)
[2021-10-11] MEDS: lamoTRIgine 100 MG TABLET PO SCH (21:58)
[2021-10-11] MEDS: Ziprasidone 20 MG CAPSULE PO SCH (21:58)
[2021-10-11] MEDS: valACYclovir 500 MG TABLET PO SCH (21:59)
[2021-10-12] MEDS: valACYclovir 500 MG TABLET PO SCH ×2 (10:24→21:00)
[2021-10-12] MEDS: Nicotine 14 MG PATCH.TD24 TD SCH (10:25)
[2021-10-12] MEDS: Ziprasidone 20 MG CAPSULE PO SCH (10:26)
[2021-10-12] MEDS: lamoTRIgine 100 MG TABLET PO SCH (10:26)
[2021-10-12] MEDS ORDERED: Divalproex (24 HR) 500 MG TABLET PO SCH (21:00)
[2021-10-13 08:57] VITALS: BP 112/66; PULSE 88; TEMP 98; O2SAT 97
[2021-10-13] MEDS: valACYclovir 500 MG TABLET PO SCH (09:40)
[2021-10-13] MEDS: Nicotine 14 MG PATCH.TD24 TD SCH (09:40)
== END 2021-10-13 12:25 | disposition home or self-care (01) ==
LOC: EMEROOARM 15:59 → 1ANU 20:22
PROVIDERS: ADMIT Psychiatry & Neurology Psychiatry; ATTEND Psychiatry & Neurology Psychiatry

== ENCOUNTER 2022-02-10 14:20 | Inpatient (IN) ==
[2022-02-10 15:21] LABS: Basophils # 0.1 K/mcL (0.0-0.2); Basophils % 0.5 %; Eosinophils # 0.2 K/mcL (0.0-0.6); Eosinophils % 1.7 %; Hematocrit 39.3 % (35.3-44.9); Hemoglobin 12.7 g/dL (11.5-15.4); Immature Granulocytes % 0.5 % (0-4); Lymphocytes # 3.6 K/mcL (0.6-4.6); Lymphocytes % 25.9 %; Mean Corpuscular HGB Conc 32.3 g/dL (31.6-35.5); Mean Corpuscular Hemoglobin 29.2 pg (28.0-33.3); Mean Corpuscular Volume 90.3 fL (83.0-100.0); Mean Platelet Volume 8.9 fL (9.4-12.4); Monocytes # 0.8 K/mcL (0.0-1.3); Monocytes % 5.7 %; Neutrophils # 9.1 K/mcL (1.6-8.9); Platelet Count 356 K/mcL (140-400); Red Blood Count 4.35 M/mcL (3.82-4.97); Red Cell Distribution Width 14.4 % (11.5-14.5); Segmented Neutrophils % 65.7 %; White Blood Count 13.8 K/mcL (4.3-11.1)
[2022-02-10 15:23] LABS: Bacteria,Urine Few per hpf (None-Few); Bilirubin,Urine Negative (Negative); Blood,Urine Large (Negative); Clarity,Urine Turbid (Clear); Color,Urine Yellow (Yellow); Glucose,Urine (UA) Normal (Normal); Ketones,Urine Trace mg/dL (Negative); Leukocyte Esterase,Urine Moderate (Negative); Mucus,Urine Few per lpf (None-Few); Nitrite,Urine Negative (Negative); PH,Urine 6.5 pH Units (5.0-8.0); Protein,Urine 30 mg/dL (Neg-Trace); RBC,Urine TNTC per hpf (0-3); Specific Gravity,Urine > 1.030 (1.010-1.025); Squamous Epithelial Cell,Urine Few per hpf (None-Few); WBC,Urine 15-30 per hpf (0-3)
[2022-02-10 15:29] LABS: Amphetamine Screen,Urine Negative ng/mL (Cutoff=1000); Barbiturate Screen,Urine Negative ng/mL (Cutoff=200); Benzodiazepines Screen,Urine Negative ng/mL (Cutoff=200); Cannabinoid Screen,Urine Negative ng/mL (Cutoff = 50); Cocaine Screen,Urine Negative ng/mL (Cutoff= 300); Opiate Screen,Urine Negative ng/mL (Cutoff=300); Phencyclidine Screen,Urine Negative ng/mL (Cutoff=25)
[2022-02-10 15:41] LABS: Acetaminophen < 10 mcg/mL (10-20); Alanine Aminotransferase 19 Units/L (7-52); Albumin 3.9 g/dL (3.5-5.7); Albumin/Globulin Ratio 1.1 (1.1-2.2); Alkaline Phosphatase 79 Units/L (34-104); Aspartate Amino Transferase 12 Units/L (13-39); BUN/Creatinine Ratio 11 (6-26); Bilirubin,Direct 0.1 mg/dL (0.0-0.2); Bilirubin,Indirect 0.1 mg/dL (0.0-1.0); Bilirubin,Total 0.2 mg/dL (0.3-1.0); Blood Urea Nitrogen 9 mg/dL (6-20); Calcium 9.1 mg/dL (8.6-10.3); Carbon Dioxide 24 mEq/L (23-29); Chloride 106 mEq/L (98-107); Chol/HDL Ratio 4.9 (0-4.9); Cholesterol 131 mg/dL (< 200); Ethanol < 10 mg/dL (Less than 10); Globulin 3.4 g/dL (2.4-3.5); Glucose 97 mg/dL (70-105); HDL Cholesterol 27 mg/dL (40-59); LDL Cholesterol,Calculated 42 mg/dL (< 100); Osmolality,Calculated 285 (280-300); Potassium 3.7 mEq/L (3.5-5.1); Salicylate < 2.5 mg/dL (15.0-30.0); Sodium 138 mEq/L (136-145); Total Protein 7.3 g/dL (6.4-8.9); Triglycerides 312 mg/dL (< 150); eGFR For African Americans > 60 (> 60); eGFR For Non-African Americans > 60 (> 60)
[2022-02-10 15:45] LABS: Estimated Average Glucose 123 mg/dl; Hemoglobin A1C 5.9 %
[2022-02-10] MEDS: cephALEXin 500 MG CAPSULE PO SCH (21:06)
[2022-02-10 21:19] LABS: Influenza A PCR Negative (Negative); Influenza B PCR Negative (Negative); Resp. Syncytial Virus PCR Negative (Negative)
[2022-02-10 21:20] LABS: SARS-CoV-2 by PCR (In House) Negative (Negative)
[2022-02-10] MEDS ORDERED: *HR* LORazepam 2 MG/ML VIAL IM PRN (21:34)
[2022-02-10] MEDS ORDERED: Haloperidol Lactate 5 MG/ML VIAL IM PRN (21:34)
[2022-02-10] MEDS ORDERED: Acetaminophen 325 MG TABLET PO PRN (21:34)
[2022-02-10] MEDS ORDERED: haloperidoL 5 MG TABLET PO PRN (21:34)
[2022-02-10] MEDS ORDERED: *HR* LORazepam 1 MG TABLET PO PRN (21:34)
[2022-02-10] MEDS: QUEtiapine Fumarate 25 MG TABLET PO PRN (23:07)
[2022-02-10] MEDS: hydrOXYzine pamoate 25 MG CAPSULE PO PRN (23:07)
[2022-02-11] MEDS: cephALEXin 500 MG CAPSULE PO SCH ×4 (09:05→20:56)
[2022-02-11] MEDS: Nicotine 2 MG GUM BC PRN (14:24)
[2022-02-11] MEDS: QUEtiapine Fumarate 25 MG TABLET PO PRN (20:56)
[2022-02-11] MEDS: ARIPiprazole 5 MG TABLET PO SCH (20:56)
[2022-02-11] MEDS: hydrOXYzine pamoate 25 MG CAPSULE PO PRN (20:56)
[2022-02-12] MEDS: cephALEXin 500 MG CAPSULE PO SCH ×4 (08:51→21:03)
[2022-02-12] MEDS: Nicotine 2 MG GUM BC PRN ×3 (12:39→21:03)
[2022-02-12] MEDS: hydrOXYzine pamoate 25 MG CAPSULE PO PRN ×2 (14:38→21:03)
[2022-02-12] MEDS ORDERED: Paliperidone Palmitate 234 MG/1.5 ML SYRINGE IM SCH (15:00)
[2022-02-12] MEDS: QUEtiapine Fumarate 25 MG TABLET PO PRN (21:03)
[2022-02-12] MEDS: ARIPiprazole 5 MG TABLET PO SCH (21:03)
[2022-02-13] MEDS: cephALEXin 500 MG CAPSULE PO SCH ×4 (08:37→20:35)
[2022-02-13] MEDS: Nicotine 2 MG GUM BC PRN ×4 (08:37→20:48)
[2022-02-13] MEDS: QUEtiapine Fumarate 25 MG TABLET PO PRN (20:35)
[2022-02-13] MEDS: ARIPiprazole 5 MG TABLET PO SCH (20:35)
[2022-02-13] MEDS: hydrOXYzine pamoate 25 MG CAPSULE PO PRN (20:35)
[2022-02-14] MEDS: cephALEXin 500 MG CAPSULE PO SCH ×4 (08:50→20:08)
[2022-02-14] MEDS: hydrOXYzine pamoate 25 MG CAPSULE PO PRN (08:50)
[2022-02-14] MEDS: Nicotine 2 MG GUM BC PRN ×3 (08:52→17:16)
[2022-02-14] MEDS ORDERED: Melatonin 3 MG TABLET PO PRN (11:01)
[2022-02-14] MEDS ORDERED: hydrOXYzine pamoate 25 MG CAPSULE PO PRN (11:02)
[2022-02-14] MEDS: ARIPiprazole 5 MG TABLET PO SCH (20:08)
[2022-02-14] MEDS: QUEtiapine Fumarate 25 MG TABLET PO PRN (20:09)
[2022-02-15] MEDS: cephALEXin 500 MG CAPSULE PO SCH ×4 (09:00→20:25)
[2022-02-15] MEDS: Nicotine 2 MG GUM BC PRN ×3 (09:12→16:47)
[2022-02-15] MEDS: QUEtiapine Fumarate 25 MG TABLET PO PRN (20:25)
[2022-02-15] MEDS: ARIPiprazole 5 MG TABLET PO SCH (20:25)
[2022-02-16 08:49] VITALS: BP 117/72; PULSE 72; TEMP 98; O2SAT 98
[2022-02-16] MEDS: cephALEXin 500 MG CAPSULE PO SCH ×2 (09:34→12:03)
[2022-02-16] MEDS: Nicotine 2 MG GUM BC PRN ×2 (09:42→12:49)
== END 2022-02-16 13:05 | disposition home or self-care (01) | DRG 885 ==
LOC: EMEROOARM 14:20 → 1ANU 14:20
PROVIDERS: ADMIT Psychiatry & Neurology Psychiatry; ATTEND Psychiatry & Neurology Psychiatry